=== PATIENT | female | born 1965 | race Caucasian/White ===

== ENCOUNTER 2019-12-23 06:41 | Outpatient (CLI) | payer OTHER, SELFPAY ==
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
== END 2019-12-23 06:42 | disposition home or self-care (01) ==
PROVIDERS: PCP Internal Medicine; Visit Provider Internal Medicine
DX: M54.2 Cervicalgia (principal); S19.9XXA Unspecified injury of neck, initial encounter; M47.812 Spondylosis without myelopathy or radiculopathy, cervical region; M43.12 Spondylolisthesis, cervical region
CPT/HCPCS: 72052

== ENCOUNTER 2020-10-09 07:45 | Outpatient (CLI) | payer OTHER, SELFPAY | END 2020-10-09 07:46 | disposition home or self-care (01) | LOC: ANHAUDIO 07:46 | PROVIDERS: Visit Provider Otolaryngology | DX: H93.13 Tinnitus, bilateral (principal) | CPT/HCPCS: 92557; 92567 ==

== ENCOUNTER 2021-08-18 20:47 | Emergency (ER) | payer OTHER, SELFPAY ==
--- NOTE | ~2021-08-18 | XR_ITS ---
EXAMINATION: XR ankle RT min 3V EXAM DATE: 08/18/2021 21:06 INDICATION: Fall today, right ankle pain. Initial encounter. TECHNIQUE: Right ankle frontal, lateral and oblique projections obtained and reviewed. There is no p rior study for comparison. FINDINGS: There is possible acute closed posttraumatic nondisplaced fracture of the right radial dis clemente metaphysis. If patient unable to bear weight, consider CT without contrast. No appreciable soft t issue swelling identified. No other suspicious findings. IMPRESSION: Possible fibular fracture; consider CT without contrast. Reviewed, dictated and finalized at location A.
[2021-08-18 21:09] VITALS: BP 141/74; PULSE 99; RESP 18; TEMP 37.1; O2SAT 98
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
[2021-08-18 23:27] VITALS: BP 130/78; PULSE 88; RESP 18; TEMP 36.8; O2SAT 100
== END 2021-08-18 23:28 | disposition home or self-care (01) ==
PROVIDERS: Emergency Provider Emergency Medicine
DX: S93.401A Sprain of unspecified ligament of right ankle, initial encounter (principal); E78.5 Hyperlipidemia, unspecified; Z85.3 Personal history of malignant neoplasm of breast; W10.9XXA Fall (on) (from) unspecified stairs and steps, initial encounter
CPT/HCPCS: 73610; 99283

== ENCOUNTER 2023-01-04 13:35 | Emergency (ER) | payer OTHER, SELFPAY ==
[2023-01-04 13:43] VITALS: BP 133/72; PULSE 115; RESP 12; TEMP 38.3; O2SAT 98
[2023-01-04 13:48] VITALS: BP 133/72; PULSE 115; RESP 12; TEMP 38.3; O2SAT 98
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
== END 2023-01-04 14:29 | disposition home or self-care (01) ==
PROVIDERS: Emergency Provider Nurse Practitioner Family; PCP Internal Medicine
DX: J02.0 Streptococcal pharyngitis (principal); E78.5 Hyperlipidemia, unspecified; E55.9 Vitamin D deficiency, unspecified; Z85.3 Personal history of malignant neoplasm of breast
CPT/HCPCS: 87804; 87880; 99213; G0463

== ENCOUNTER 2023-01-25 14:55 | Emergency (ER) | payer OTHER, SELFPAY ==
[2023-01-25 15:15] VITALS: BP 138/76; PULSE 88; RESP 18; TEMP 36.6; O2SAT 99
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
== END 2023-01-25 15:33 | disposition home or self-care (01) ==
PROVIDERS: Emergency Provider Nurse Practitioner Family; PCP Internal Medicine
DX: B34.9 Viral infection, unspecified (principal); E78.5 Hyperlipidemia, unspecified; Z85.3 Personal history of malignant neoplasm of breast
CPT/HCPCS: 81003; 87081; 87880; 99213; G0463

== ENCOUNTER 2024-05-29 19:29 | Emergency (ER) | payer OTHER, SELFPAY ==
[2024-05-29 19:40] VITALS: BP 146/76; PULSE 95; RESP 16; TEMP 36.9; O2SAT 99
[2024-05-29 19:44] VITALS: BP 146/76; PULSE 95; RESP 16; TEMP 36.9; O2SAT 99
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
== END 2024-05-29 20:00 | disposition home or self-care (01) ==
PROVIDERS: Emergency Provider Nurse Practitioner Family; PCP Internal Medicine
DX: J02.0 Streptococcal pharyngitis (principal); E78.5 Hyperlipidemia, unspecified; Z85.3 Personal history of malignant neoplasm of breast
CPT/HCPCS: 87880; 99213; G0463

== ENCOUNTER 2025-03-10 06:26 | Emergency (ER) | payer OTHER, SELFPAY ==
[2025-03-10] VITALS (18 sets, daily range): BP systolic 114–155; BP diastolic 63–84; PULSE 83–115; RESP 12–24; TEMP 36.4–36.8; O2SAT 95–100
--- NOTE | ~2025-03-10 | US_ITS ---
EXAMINATION: US right upper quadrant DATE: 03/10/2025 07:45 INDICATION: Right upper quadrant abdominal pain. Chest pain. TECHNIQUE: Multiple grayscale and Doppler ultrasound images of the abdomen were obtained. COMPARISON: None FINDINGS: The pancreatic head and body are normal in appearance. The pancreatic tail is not visualized. Visual ized proximal to mid abdominal aorta and inferior vena cava are normal. Liver has normal contour, wit h a smooth surface. There is increased parenchymal echogenicity and coarsened echotexture consistent with diffuse hepatic steatosis. No liver lesion identified. No intrahepatic biliary duct dilation hernandez spected. Portal venous flow was seen in the hepatopetal, normal direction and has normal Doppler wave form. There are multiple small shadowing gallstones layering in the dependent aspect of the otherwise normal-appearing gallbladder. The common bile duct measures 3 mm, which is normal. Sonographic Tom y sign was reported as negative by the rubber roller grinder.Visualized portion of the right kidney demonstrate s normal contour and echogenicity with no hydronephrosis. IMPRESSION: 1. Cholelithiasis without findings of acute cholecystitis or biliary obstruction. 2. Diffuse hepatic steatosis. Reviewed, dictated and finalized at location B. IMPRESSION: 1. Cholelithiasis without findings of acute cholecystitis or biliary obstructio n. 2. Diffuse hepatic steatosis.
--- NOTE | ~2025-03-10 | XR_ITS ---
XR chest 2V Ordering provider: Logan Mesa MD History: 59 years Female with . chest pain . Comparison: None. FINDINGS: MEDIASTINUM: The cardiac silhouette is not enlarged. Bilateral breast implants. LUNGS: No infiltrates, effusions or pneumothorax. OTHER: No free air under the diaphragm. IMPRESSION: No acute cardiopulmonary pathology. Reviewed, dictated and finalized at location A.
--- OUTSIDE RECORDS SUMMARY | 2025-03-10 06:28 | XMS_ITS ---
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 Fiberglass Name Role Phone Vickie Melton Primary Care Provider Sarita Ahn Unavailable [phone] REASON FOR VISIT Refill Medications Medication SIG (Take, Route, Frequency, Duration) Notes Start Date End Date Status Albuterol Sulfate HFA 108 (90 Base) MCG/ACT 2 puffs Inhalation every 4 hrs for 30 days Active Encounters Encounter Location Date Provider Diagnosis [facility] [address] [place] [address] 01/20/2025 Sarita Isidro Shortness of breath R06.02 Assessments Encounter Date Diagnosis (ICD Code) Assessment Notes Treatment Notes Treatment Clinical Notes Section Notes 01/20/2025 Shortness of breath (ICD-10 - R06.02) Plan Of Treatment Medication Medication Name Sig Start Date Stop Date Notes Albuterol Sulfate HFA 108 (9 0 Base) MCG/ACT 2 puffs Inhalation every 4 hrs for 30 days Next Appt Details Provider Name:Sarita Isidro , 06/26/2025 03:00:00 PM, [address] [facility] [address], [place], [address], Progress Notes * Mary PUENTESOB:1965 (59 yo F)Acc No.[id number]:01/20/2025 Patient: K UBERSKI, Talon :1965 A ge:59 Y S ex:Female Address:[facility] [address], [place], [address] * Refills Refill Albuterol Sulfate HFA Aerosol Solution, 108 (90 Base) MCG/ACT, Inhalation, 1, 2 puffs, every 4 hrs, 30 days, Refills=0 * true * Date: Generated for José Miguel gilbert/Tracy/Danikaitting on: 0 03/10/2025 06:28 AM CDT
--- OUTSIDE RECORDS SUMMARY | 2025-03-10 06:28 | XMS_ITS ---
Author Organization [facility] [employer] [place] ([address]) Address [address] [place] [address] Care Team Providers Care Wood Carver Hand Name Role Phone Vickie Melton Primary Care Provider Sarita Ahn [phone] REASON FOR VISIT Message Medications Medication SIG (Take, Route, Fr equency, Duration) Notes Start Date End Date Status Breyna 160-4.5 MCG/ACT 2 puffs Inhalatio n twice a day for 90 days 12/26/2024 Active Encounters Encounter Location Date Provider Diagnosis [facility] [address] [place] [address] 12/25/2024 Sarita Isidro Plan Of Treatment Medication Medication Name Sig Start Date Stop Date Notes Breyna 160-4.5 MCG/ACT 2 puffs Inhalatio n twice a day for 90 days 12/26/2024 Next Appt Details Provider Name:Sarita Isidro , 06/26/2025 03:00:00 PM, [address], [place], [address], Progress Notes * Torres PUENTES:1965 (59 yo F)Acc No.[id number]:12/25/2024 Patient: Talon BARRON :1965 A ge:59 Y S ex:Female Address:[address] [place], [address] * Refills Start Breyna Aerosol, 160-4.5 MCG/ACT, Inhalation, 3, 2 puffs, twice a day, 90 days, Refills=1 * true * Date: Generated for José Miguel gilbert/Tracy/Danikaitting on: 0 03/10/2025 06:28 AM CDT
--- OUTSIDE RECORDS SUMMARY | 2025-03-10 06:28 | XMS_ITS ---
Author Organization [employer] [place] ([address]) Address [address] [place] [address] Care Team Providers Care Knuckler Name Role Phone Vickie Melton Primary Care Provider Sarita Ahn [phone] REASON FOR VISIT Message Medications Medication SIG (Take, Route, Frequency, Duration) Notes Start Date End Date Status Fluticasone Furoate-Vilanterol 100-25 MCG/ACT 1 puff Inhalation Once a day for 90 days 12/16/2024 Active Encounters Encounter Location Date Provider Diagnosis [facility] [address] [place] [address] 12/16/2024 Sarita Isidro Shortness of breath R06.02 Assessments Encounter Date Diagnosis (ICD Code) Assessment Notes Treatment Notes Treatment Clinical Notes Section Notes 12/16/2024 Shortness of breath (ICD-10 - R06.02) Plan Of Treatment Medication Medication Name Sig Start Date Stop Date Notes Fluticasone Furoate-Vilanter ol 100-25 MCG/ACT 1 puff Inhalation Once a day for 90 days 12/16/2024 Dulera 100-5 MCG/ACT 2 puffs Inhalation Twice a day Next Appt Details Provider Name:Sarita Isidro , 06/26/2025 03:00:00 PM, [address], [address], [place], [address], Progress Notes * Torres PUENTES:1965 (59 yo F)Acc No.[id number]:12/16/2024 Patient: aTlon BARRON :1965 A ge:59 Y S ex:Female Address:[facility] [address] [place], [address] * Refills Stop Dulera Aerosol, 100-5 MCG/ACT, Inhalation, 2 puffs, Twice a day Start Fluticasone Furoate-Vilanterol Aerosol Powder Breath Activated, 100-25 MCG/ACT, Inhalation, 3, 1 puff, Once a day, 90 days, Refills=0 * true * Date: Generated for José Miguel gilbert/Tracy/Danikaitting on: 0 03/10/2025 06:28 AM CDT
--- OUTSIDE RECORDS SUMMARY | 2025-03-10 06:28 | XMS_ITS | Patient Health Record ---
Author Organization [facility] ([address]) Address [address] [address] Care Team Providers Care Business Development Engineer Name Role Phone Vickie Melton Primary Care Provider UnavailSarita Weiner Unavailable [phone] [facility], Provider Unavailable Unavailab le Allergies Allergen (clinical drug ingredient) Drug/Non Drug Allergy documented on EMR Reaction Allergy Type Onset Date Status penicillamine penicillAMINE Unknown Drug Allergy Active Results Component Value Reference Range Notes Spirometry Reviewed date:04/21/2024 05:00:54 PM Interpretation:Normal Performing Lab: Notes/Report: Normal SpiroPreBronchodilator_FVC 2.99 SpiroPostBronchodilator_FEF25_75 0 SpiroPreBronchodilator_FEF25_75 2.06 SpiroPreBronchodilator_FEV1 2.31 SpiroPrecentPredictionPost_F EF25 _75 0 SpiroPrecentPredictionPost_FEV1 0 SpiroPrecentPredictionPost_F EV1_ OVER_FVC 0 SpiroPrecentPredictionPost_FVC 0 SpiroPrecentPredictionPre_FE F25_ 75 84.8 SpiroPrecentPredictionPre_FEV1 94.3 SpiroPrecentPredictionPre_FE V1_O VER_FVC 98.5 SpiroPrecentPredictionPre_FVC 96.5 SpiroPredicted_FEF25_75 2.43 SpiroPreBronchodilator_FEV1_ OVER _FVC 77.44 SpiroPreBronchodilator_PEF 5.62 SpiroPostBronchodilator_FVC 0 SpiroPostBronchodilator_FEV1 0 SpiroPostBronchodilator_FEV1 _OVE R_FVC 0 SpiroPostBronchodilator_PEF 0 SpiroPredicted_FVC 3.1 SpiroPredicted_FEV1 2.45 SpiroPredicted_FEV1_OVER_FVC 78.62 SpiroPredicted_PEF 5.73 -CBC With Differential/Plate let Reviewed date:05/13/2024 09:40:56 PM Interpretation:Normal Performing Lab:[facility], [address] [place] [id number], Phone - [phone], Director - Mikey Notes/Report: WBC 5.7 3.4-10.8 x10E3/uL RBC 4.83 3.77-5.28 x10E6/uL Hemoglobin 14.3 11.1-15.9 g/dL Hematocrit 42.8 34.0-46.6 % MCV 89 79-97 fL MCH 29.6 26.6-33.0 pg MCHC 33.4 31.5-35.7 g/dL RDW 12.2 11.7-15.4 % Platelets 363 150-450 x10E3/uL Neutrophils 53 Not Estab. % Lymphs 34 Not Estab. % Monocytes 9 Not Estab. % Eos 3 Not Estab. % Basos 1 Not Estab. % Neutrophils (Absolute) 3.0 1.4-7.0 x10E3/uL Lymphs (Absolute) 2.0 0.7-3.1 x10E3/uL Monocytes(Absolute) 0.5 0.1-0.9 x10E3/uL Eos (Absolute) 0.2 0.0-0.4 x10E3/uL Baso (Absolute) 0.0 0.0-0.2 x10E3/uL Immature Granulocytes 0 Not Estab. % Immature Grans (Abs) 0.0 0.0-0.1 x10E3/uL -Respiratory Allergens w/Tot al IgE Area 8 Reviewed date:05/17/2024 09:20:58 PM Interpretation:Abnormal [facility]forming [facility], [address] [place] [id number], Phone - [phone], Director - Kaycee Notes/Report: Class Description Levels of Specific IgE Class Description of Class ----- < 0.10 0 Negative 0.10 - 0.31 0/I Equivocal/Low 0.32 - 0.55 I Low 0.56 - 1.40 II Moderate 1.41 - 3.90 III High 3.91 - 19.00 IV Very High 19.01 - 100.00 V Very High >100.00 Very High Immunoglobulin E, Total 324 6-495 IU/mL A157-ZoU D pteronyssinus 7.99 Class IV kU/L D704-JgY D farinae 8.96 Class IV kU/L H880-DiK Cat Dander 0.72 Class II kU/L C904-HzC Dog Dander 6.74 Class IV kU/L I605-UiM [place] Grass 1.11 Class II kU/L T812-YqL Miguel Grass 0.69 Class II kU/L S277-EwE Cockroach, Greek <0.10 Class 0 kU/L R124-MoY Penicillium chrysogen <0.10 Class 0 kU /L A070-BcM Cladosporium herbarum <0.10 Class 0 kU /L M947-IyN Aspergillus fumigatus <0.10 Class 0 kU /L G609-XrT Alternaria alternata <0.10 Class 0 kU/ L J536-LdY Maple/[place] <0.10 Class 0 kU/L D800-XkI Garden, Mountain <0.10 Class 0 kU/L I141-EzX [place], White <0.10 Class 0 kU/L O510-BrS Elm, [place]mani <0.10 Class 0 kU/L T652-WmO Maple [place] <0.10 Class 0 kU/L U507-QsW [place] <0.10 Class 0 kU/L T512-ImC [place], White <0.10 Class 0 kU/L T131-KcQ [place] <0.10 Class 0 kU/L Z183-YfU Pecan, [place] <0.10 Class 0 kU/L I574-KyR White [place] <0.10 Class 0 kU/L G333-UqZ Ragweed, Short 0.49 Class I kU/L B874-HeX Thistle, Indonesian <0.10 Class 0 kU/L E057-YjJ Pigweed, Common 0.20 Class 0/I kU/L R221-RiP Rough [place] <0.10 Class 0 kU/L Y617-BoP Mouse Urine <0.10 Class 0 kU/L Reason For Referral No Information Medications Medication SIG (Take, Route, Frequency, Duration) Notes Start Date End Date Status Cholecalciferol *Please review and pick correct strength-formulat ion from [employer] options. If intended option is not shown, discontinue and re-order from Quick Search* Active Breyna 160-4.5 MCG/ACT 2 puffs Inhalation twice a day for 90 days 12/26/2024 Active ZyrTEC 10 MG 1 tablet Orally Once a day for 30 day(s) Active Nasacort Allergy 24HR 55 MCG/ACT 1 spray in each nostril Nasally Once a day for 30 day(s) Active traZODone HCl 50 MG as directed orally Active AEROCHAMBER MDI SPACER - MOUTHPIECE (ADULT) N/A As directed PO Per asthma action plan for 30 days Active Fluticasone Furoate-Vilanterol 100-25 MCG/ACT 1 puff Inhalation Once a day for 90 days 12/16/2024 Active Albuterol Sulfate HFA 108 (90 Base) MCG/ACT 2 puffs Inhalation every 4 hrs for 30 days Active Albuterol Sulfate HFA 108 (90 Base) MCG/ACT 2 puff(s) inhaled every 6 hours Not-Taking Fluticasone-Salmetero l 115-21 MCG/ACT 2 puffs Inhalation Twice a day for 90 days 09/10/2024 Not-Taking Immunizations Vaccine Route Administration Date Status Comme nts NOC Influenza-Afluria PFS IM Intramuscular 11/14/2024 Admi nistered Social History Tobacco Use: Social History Observation Description Date Details (start date - stop date) Never Smoker NA - NA Tobacco Control (Standard) Question Answer Notes Tobacco use: Nonsmoker Problems Problem Type SNOMED Code ICD Code Onset Dates Problem Status W/U Status Risk Notes Problem Wheezing (16162511) Wheezing (R06.2) Active confirmed Problem Chronic allergic conjunctivitis (79646330) Other chronic allergic conjunctivitis (H10.45) Active confirmed Problem Allergic rhinitis caused by pollen (disorder) (00984271) Allergic rhinitis due to pollen (J30.1) Active confirmed Problem Allergic rhinitis (96371888) Other allergic rhinitis (J30.89) Active confirmed Problem Chronic rhinitis (06558121) Chronic rhinitis (J31.0) Active confirmed Problem Hypertrophy of nasal turbinates (48984727) Hypertrophy of nasal turbinates (J34.3) Active confirmed Problem Uncomplicated mild persistent asthma (570956289) Mild persistent asthma, uncomplicated (J45.30) Active confirmed Problem Uncomplicated moderate persistent asthma (676024086) Moderate persistent asthma, uncomplicated (J45.40) Active confirmed Problem Uncomplicated severe persistent asthma (898961217) Severe persistent asthma, uncomplicated (J45.50) Active confirmed Problem Allergic rhinitis caused by animal hair and dander (737329701630927) Allergic rhinitis due to animal (cat) (dog) hair and dander (J30.81) Active confirmed Problem Shortness of breath (264017838) Shortness of breath (R06.02) Active confirmed Vital Signs Oximetry 98 % 11/14/2024 Blood pressure diastolic 82 mm Hg 11/14/2024 Height 64 in 11/14/2024 Blood pressure systolic 127 mm Hg 11/14/2024 Weight 186.8 lbs 11/14/2024 BMI 32.06 kg/m2 11/14/2024 Encounters Encounter Location Date Provider Diagnosis [address] [address] 04/27/2024 Provider [facility] Shortness of breath R06.[address] [place] [address] [address] 04/18/2024 Sarita Young Wheezing R06.2 ; Shortness of breath R06.02 ; Hypertrophy of nasal turbinates J34.3 ; Chronic rhinitis J31.0 and Adverse effect of penicillins, initial encounter T36.0X5A [address] [place] [employer] [address] [address] 07/18/2024 Sarita Young Wheezing R06.2 ; Shortness of breath R06.02 ; Allergic rhinitis due to pollen J30.1 ; Allergic rhinitis due to animal (cat) (dog) hair and dander J30.81 ; Other allergic rhinitis J30.89 and Adverse effect of penicillins, subsequent encounter T36.0X5D [place] [address] [address] 11/14/2024 Sarita Young Wheezing R06.2 ; Shortness of breath R06.02 ; Allergic rhinitis due to pollen J30.1 ; Allergic rhinitis due to animal (cat) (dog) hair and dander J30.81 ; Other allergic rhinitis J30.89 ; Adverse effect of penicillins, subsequent encounter T36.0X5D and Encounter for immunization Z23 [address] [address] 03/11/2024 Sarita Young Shortness of breath R06.[address] [address] 03/13/2024 Sarita Young [address] [address] 09/18/2024 Sarita Young Shortness of breath R06.[address] [address] 10/01/2024 Sarita Young [address] [address] 12/10/2024 Sarita Young [address] [address] 12/10/2024 Sarita Young [address] [address] 12/16/2024 Sarita Young Shortness of breath R06.[address] [address] 12/25/2024 Sarita Young [address] [address] 01/20/2025 Sarita Young Shortness of breath R06.[address] [address] 09/09/2024 Sarita Young Shortness of breath R06.[address] [address] 09/10/2024 Sarita Young Assessments Encounter Date Diagnosis (ICD Code) Assessment Notes Treatment Notes Treatment Clinical Notes Section Notes 03/11/2024 Shortness of breath (ICD-10 - R06.02) 04/18/2024 Wheezing (ICD-10 - R06.2) See plan above 07/18/2024 Shortness of breath (ICD-10 - R06.02) Talon has experienced lower airway symptoms with exposure to animals and possibly mold concerning for asthma, which responds well to albuterol. -Spirometry last visit with normal function but FVL shows scalloping concerning for airway obstruction. Started on Breo then changed to Advair due to insurance. 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 Doing better on Advair - will refill PATRIA. Highly recommend immunotherapy - AAP was reviewed and training with MDI and spacer was performed last visit. Rinse out mouth after use of Adviar 09/09/2024 Shortness of breath (ICD-10 - R06.02) 09/18/2024 Shortness of breath (ICD-10 - R06.02) 11/14/2024 Wheezing (ICD-10 - R06.2) See plan above 04/18/2024 Shortness of breath (ICD-10 - R06.02) Talon was seen last month for evaluation. She has experienced lower airway symptoms with exposure to animals and possibly mold concerning for asthma, which responds well to albuterol. -Spirometry last visit with normal function but FVL shows scalloping concerning for airway obstruction. Started on Breo then changed to Advair due to insurance. 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 - AAP was formulated and training with MDI and spacer was performed last visit. Rinse out mouth after use of Adviar -Will check ImmunoCaps as she is on Trazadone. She is willing to hold in the future for testing 04/27/2024 Shortness of breath (ICD-10 - R06.02) 07/18/2024 Wheezing (ICD-10 - R06.2) See plan above 11/14/2024 Shortness of breath (ICD-10 - R06.02) Talon has experienced lower airway symptoms with exposure to animals and possibly mold concerning for asthma, which responds well to albuterol. -Spirometry last visit with normal function but FVL shows scalloping concerning for airway obstruction. Started on Breo then changed to Advair due to insurance. 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 Doing better on Dulera- will refill PATRIA. Highly recommend immunotherapy - AAP was reviewed and training with MDI and spacer was performed last visit. Rinse out mouth after use of Adviar -Flu shot administered today 12/16/2024 Shortness of breath (ICD-10 - R06.02) 01/20/2025 Shortness of breath (ICD-10 - R06.02) 04/18/2024 Hypertrophy of nasal turbinates (ICD-10 - J34.3) Talon's history is concerning for allergic disease. As she is on Trazadone, ImmunoCaps ordered and plan for selective testing in the future -highly consider immunotherapy 07/18/2024 Allergic rhinitis due to pollen (ICD-10 - J30.1) ImmunoCaps reviewed today showing grass, cat, dog, ragweed, dust mite, and pigweed allergies. Accordingly, we have introduced a new, aggressive medication regimen, discussed nasal washes and allergy-specific avoidance measures. We also discussed adjunctive therapies including subcutaneous, specific allergen immunotherapy as relates to the treatment and prevention of atopic disease. He/She is currently considering the risks, benefits and alternatives to this care. Risks: bleeding, infection, allergic reaction, anaphylaxis; Benefits: reduced need for medications, improved symptoms, disease modification. Alternatives: watch/wait, change medication regimen, improve allergy avoidance measures. -Recommend returning off Trazadone later this year for selective allergy testing -Recommend dosing Zyrtec before exposure to dog, carry PATRIA 11/14/2024 Allergic rhinitis due to pollen (ICD-10 - J30.1) ImmunoCaps reviewed today showing grass, cat, dog, ragweed, dust mite, and pigweed allergies. Accordingly, we have introduced a new, aggressive medication regimen, discussed nasal washes and allergy-specific avoidance measures. We also discussed adjunctive therapies including subcutaneous, specific allergen immunotherapy as relates to the treatment and prevention of atopic disease. He/She is currently considering the risks, benefits and alternatives to this care. Risks: bleeding, infection, allergic reaction, anaphylaxis; Benefits: reduced need for medications, improved symptoms, disease modification. Alternatives: watch/wait, change medication regimen, improve allergy avoidance measures. -Recommend returning off Trazadone later this year for selective allergy testing -Recommend dosing Zyrtec before exposure to dog, carry PATRIA 04/18/2024 Chronic rhinitis (ICD-10 - J31.0) See above plan -discussed options like Zyrtec vs. Sara prior to dog exposure. Also taking Nasacort -avoidance measures also reviewed 11/14/2024 Allergic rhinitis due to animal (cat) (dog) hair and dander (ICD-10 - J30.81) Follow allergen avoidance, meds and consider SCIT as an adjunctive treatment to current regimen 07/18/2024 Allergic rhinitis due to animal (cat) (dog) hair and dander (ICD-10 - J30.81) Follow allergen avoidance, meds and consider SCIT as an adjunctive treatment to current regimen 07/18/2024 Other allergic rhinitis (ICD-10 - J30.89) Follow allergen avoidance, meds and consider SCIT as an adjunctive treatment to current regimen 04/18/2024 Adverse effect of penicillins, initial encounter (ICD-10 - T36.0X5A) Historical rash/hives in childhood with PCN. Minimal details recalled -recommend returning for testing -understands to hold Trazadone x 2 weeks - will try to get aeroallergen testing and SPT done the same week 11/14/2024 Other allergic rhinitis (ICD-10 - J30.89) Follow allergen avoidance, meds and consider SCIT as an adjunctive treatment to current regimen 11/14/2024 Adverse effect of penicillins, subsequent encounter (ICD-10 - T36.0X5D) Historical rash/hives in childhood with PCN. Minimal details recalled -recommend returning for testing -understands to hold Trazadone x 2 weeks - will try to get aeroallergen testing and SPT done the same week 07/18/2024 Adverse effect of penicillins, subsequent encounter (ICD-10 - T36.0X5D) Historical rash/hives in childhood with PCN. Minimal details recalled -recommend returning for testing -understands to hold Trazadone x 2 weeks - will try to get aeroallergen testing and SPT done the same week 11/14/2024 Encounter for immunization (ICD-10 - Z23) flu shot administered 04/18/2024 Other 07/18/2024 Other 11/14/2024 Other Plan Of Treatment Next Appt Details Provider Name:Sarita Isidro 06/26/2025 03:00:00 PM, [address] [facility], [address], [place], [address], Insurance Providers Payer Name Payer Address Payer Phone Subscriber Number Group Number Insured Name Patient Relationship to Insured Coverage Start Date Coverage End Date Vicki [address] [place] [address] [id number] Talon Puentes Self - patient is the insured 8 Medical (General) History Medical History History ICD Code breast cancer Surgical History Surgery Date(Month/Year) appendectomy mastectomy
--- OUTSIDE RECORDS SUMMARY | 2025-03-10 06:28 | XMS_ITS | Encounter Summary ---
Author Organization [facility] Address [address] [place] [address] Care Team Providers Care Skid Worker Name Role Phone Vickie Melton MD Primary Care Provider + Reason for Visit * Reason Comments Question Patient Communication Information Encounter Details Date Type Department Care Team (Late st Contact Info) Description 08/19/2024 Telephone [facility] Internal Medicine - [place] [id number] [place] [address] Vickie Melton MD [address] [place] [address] Question; Patient Communication; Information Social History Tobacco Use Types Packs/Day Years Used Date Smoking Tobacco: Never Smokeless Tobacco: Never Alcohol Use Standard Drinks/Week Comments No 0 (1 standard drink = 0.6 oz pur e alcohol) Comments No Sex and Gender Information Value Date Recorded Sex Assigned at Not on file Legal Sex Female 5:54 AM TABLE SETTER Gender Identity Not on file Sexual Orientation Not on file Occupation Industry Job Start Date Job End Date Not on file Not on file Not on file Not on file documented as of this encounter Miscellaneous Notes * Telephone Encounter - Farnaz Lutz RN - 08/19/2024 12:05 PM CDT Adult patient complaining of Respiratory Symptoms: Onset of new/worsening symptom(s)? Monday aching and MEZA, Sat woke with L side throat hurting with swallowing. Tested covid and flu both neg. Cheeks, teeth, and forehead hurts. Using saline spray, otherwise no nasl drainage. No cough. + Fevers. Advised walk in clinic or if unable to make it to walk in clinic this afternoon. The patient has the following symptoms or concerns: Systemic: [x] Fever of 100.4 or greater [] Chills [x] Body aches [x] Headache Respiratory: [] Chest congestion [] Cough Productive: [] Yes [] No Color: [] clear/white [] yellow [] green [] brown [] bloody [] Shortness of breath or difficulty breathing [] Wheezing [] History of asthma or COPD Nasal/sinus: [x] Sinus pain or congestion [] Nasal drainage Color: [] clear/white [] yellow [] green [] brown [] bloody [] Loss of smell or taste [] Sneezing [] History of seasonal allergies Throat: [x] Sore throat If yes, [] White patches in throat [] Swollen glands GI: [] Nausea [] Vomiting [] Diarrhea Exposure: [] Exposure to influenza in last 14 days [] Exposure to Covid-19 in last 14 days Covid-19 test in last 14 days? [] Positive Date: 08/18/24 [x] Negative Date: [] No test in last 14 days [x] Has tried medication or treatment at home Medications/Treatments tried: Excedrine migraine or advil, dayquil, Other pertinent information: Reports did a covid and Flu A/B swab fri and yesterday at work and it was NEG. INFORMATIONAL MESSAGE ONLY. Not able to schedule appointment within the recommended timeframe. Patient informed of additional [employer] Resources and expresses intent to utilize walk-in and [facility]. Phone Management by Nurse: For cough: recommend plain guaifenesin products (eg Delsym, Mucinex), follow package instructions If tried and failed, document and route to provider for consideration of prescription therapy Recommend home covid test if not done already If unable to do a home test, follow clinic specific testing recommendations for COVID and/or influenza testing If patient has known exposure to influenza to from another member of their household and are interested in an order for prophylaxis, document their personal risk factors, details of the exposure and route to provider for consideration of prescription therapy Encourage fluids unless on fluid restriction. Use Acetaminophen or Ibuprofen for fever or body aches - see appendix for contraindications and precautions Use humidifier if available if complaining of head or chest congestion Use saline nasal spray or Flonase for nasal congestion. When and Why to Call Us Back: If new or worsening symptoms develop or if no improvement after 7 days. * Telephone Encounter - Mary Fields - 08/19/2024 10:04 AM CDT Copied from [facility] #[id number]. Topic: Patient or Caregiver Communication Request >> Aug 19, 2024 10:03 AM Mary Turner wrote: Patient or Caregiver requesting advice Caller: Talon Puentes Patient/Caregiver Callback Number: [phone] (home) Call Notes: Talon Puentes asking if Dr Melton has seen her MMM and asking to be updated on Strep test * Telephone Encounter - Stephanie Pedro - 08/19/2024 8:48 AM CDT Copied from [facility] #[id number]. Topic: Patient or Caregiver Communication Request >> Aug 19, 2024 8:45 AM Stephanie Henson wrote: Patient or Caregiver insisting that a message be sent to Care Team Caller: Talon Patient/Caregiver Callback Number: [phone] Call Notes: pt tried to use [employer] and she has been unable to access the [employer] and is needing a call back about getting a in regarding a strep test * Telephone Encounter - Reymauricio Ramirezzachary - 08/19/2024 8:21 AM CDT Copied from [facility] #[id number]. Topic: Patient or Caregiver Communication Request >> Aug 19, 2024 8:20 AM Erica Henson wrote: Patient or Caregiver insisting that a message be sent to Care Team Caller: Talon Puentes Patient/Caregiver Callback Number: [phone] (home) Call Notes: do we do rapid strep test in the office? documented in this encounter Plan of Treatment Upcoming Encounters Date Type Department Care Team (Late st Contact Info) Description 09/03/2025 11:20 AM CDT Office Visit [facility] Internal Medicine - [address] [address] Vickie Melton MD [address] [place] [address] documented as of this encounter Visit Diagnoses Not on filedocumented in this encounter Care Teams Skid Worker Relationship Specialty Start Date End Date Vickie Melton MD [address] [place] [address] PCP - General Internal Medicine 12/18/20 documented as of this encounter
--- OUTSIDE RECORDS SUMMARY | 2025-03-10 06:28 | XMS_ITS | Clinical Summary ---
Author Organization [facility] [place] Address [address] [place] [address] Phone Care Team Providers Care Metallurgical Analyst Name Role Phone Vickie Melton MD Primary Care Provider + Allergies Active Allergy Reactions Criticality Noted Date Comments Penicillins Hives High 06/04/2010 Medications MULTIVITAMINS (DAILY MULTIVITAMIN ORAL) Take by mouth daily. Active 0mega-3 fatty acids-vitamin E (FISH OIL) 1,000 mg Capsule Take 1,000 mg by mouth 2 times daily. Active conjugated estrogens (PREMARIN) 0.625 mg/gram vaginal creamIndications: use daily x 1 week then three x per week Insert 0.5 Grams vaginally daily at bedtime. 30 Gram 1 1 Active TURMERIC ORAL Take by mouth. A ctive albuterol sulfate HFA 90 mcg/actuation aerosol inhalerIndication s:COVID-19 virus infection,Cough, unspecified type TAKE 2 PUFFS BY INHALATION EVERY 6 HOURS NEEDED FOR SHORTNESS OF BREATH 8.5 Gram 3 Active triamcinolone acetonide (Nasacort) 55 mcg nasal spray Administer 1 Logan in each nostril daily. 4 Active Advair Diskus 250-50 mcg/dose disk inhaler Take 1 Puff by inhalation 2 times daily. 4 Active ergocalciferol, vitamin D2, (VITAMIN D ORAL) Take 1 Capsule by mouth daily. Active CALCIUM CARBONATE ORAL Take 1 Tablet by mouth daily. Active traZODone (DESYREL) 50 mg tabletIndications :Insomnia, unspecified type TAKE 1 TABLET(50 MG) BY MOUTH DAILY AT BEDTIME 30 Tablet 1 5 Active Active Problems Patient Care Coordination No te Formatting of this note migh t be different from the original. 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 Was diagnosed with severe allergy to dogs, cats and dust mites. [facility] . Was started on Advair Diskus and Albuterol HFA Inhaler to be used prn. Insomnia 06/14/2022 Obesity (BMI 30.0-34.9) 06/14/2022 Arthralgia 06/14/2022 H/O breast reconstruction 11/10/2017 Absence of both breasts 11/10/2017 History of radiation therapy 09/07/2017 History of breast cancer 06/22/2017 Macromastia 06/22/2017 Breast mass 06/04/2010 Overview (06/04/2010): Pt felt mass May 2010 right Resolved Problems Problem Noted Date Diagnosed Date Resolved Date Lump or mass in breast 06/23/201009/04 Breast Cancer Right invasive ductal,T1bN0 06/09/2010 06/14/2022 Overview (06/23/2010): Right invasive ductal,T1bN0 Core biopsy, 06-07-2010. Grade 3. Extensive tumor necrosis ER weakly +1%, [place] weakly +2%, HER-2/luz negative, proliferative rate 78% Encounters Date Type Department Care Team Description 02/11/2025 External Device Data STL ABSTRACTION Provider, Abstract 01/29/2025 External Device Data STL ABSTRACTION Provider, Abstract 01/22/2025 External Device Data STL ABSTRACTION Provider, Abstract 01/21/2025 External Device Data STL ABSTRACTION Provider, Abstract 01/20/2025 External Device Data STL ABSTRACTION Provider, Abstract 01/18/2025 External Device Data STL ABSTRACTION Provider, Abstract 01/18/2025 External Device Data STL ABSTRACTION Provider, Abstract 01/15/2025 External Device Data STL ABSTRACTION Provider, Abstract 01/01/2025 External Device Data STL ABSTRACTION Provider, Abstract 12/10/2024 [facility] Internal Medicine [address] [address] Hannah Suzette Natividad, ANALYST BUSINESS ANALYSIS Insomnia, unspecified type from Last 3 Months Immunizations Immunization Administration Dates Next Due (SHINGRIX)(50 YRS UP) ZOSTER VACCINE RECOMBINANT, 0.5 ML, IM 06/22/2020 INFLUENZA VACCINE QUADRIVALENT 3 YR UP PF IM Family History Medical History Relation Name Comments Cancer Father epiglotis Colon Cancer Maternal Uncle Other Mother type II diabete s Colon Cancer Paternal Grandfather Breast Cancer Neg Hx Ovarian Cancer Neg Hx Relation Name Status Comments Father Maternal Uncle Mother Paternal Grandfather Social History Tobacco Use Types Packs/Day Years Used Date Smoking Tobacco: Never Smokeless Tobacco: Never Tobacco Cessation:Counseling Given: Not Answered Alcohol Use Standard Drinks/Week Comments No 0 (1 standard drink = 0.6 oz pur e alcohol) Comments No Sex and Gender Information Value Date Recorded Sex Assigned at Not on file 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 Gender Identity Not on file Sexual Orientation Not on file Occupation Industry Job Start Date Job End Date Not on file Not on file Not on file Not on file Last Filed Vital Signs Vital Sign Reading Time Taken Comments Blood Pressure 128/66 08/07/2024 11:12 AM CDT Pulse 96 08/07/2024 11:12 AM CDT Temperature 37.2 C (98.9 F) 08/07/2024 11:12 AM CDT Respiratory Rate 18 08/07/2024 11:12 AM CDT Oxygen Saturation 97% 08/07/2024 11:12 AM CDT Inhaled Oxygen Concentration - - Weight 84.4 kg (186 lb) 08/07/2024 11:12 AM CDT Height 162.6 cm (5' 4 ) 08/07/2024 11:12 AM CDT Body Mass Index 31.93 08/07/2024 11:12 AM CDT Plan of Treatment Upcoming Encounters Date Type Department Care Team (Late st Contact Info) Description 09/03/2025 11:20 AM CDT Office Visit [facility] Internal Medicine - [address] [address] Vickie Melton MD [address] [place] [address] Health Maintenance Due Date Last Done Comments DTAP/TDAP/TD VACCINES (1 - Tdap) 1982 FIT-DNA Q 3 years 2008 FIT/FOBT Q 1 year 2008 Flex Sig/CT Colonography Q 5 years 2008 HPV/Cotest (21-29) 11/10/2019 11/10/2014, 06/24/2014 HPV/Cotest (30-65) 11/10/2019 11/10/2014, 06/24/2014 ZOSTER VACCINE (2 of 2) 08/17/2020 06/22/2020, 06/22 CERVICAL CANCER SCREENING 06/16/2023 PAP SMEAR 06/16/2023 06/16/2020, 10/14, 06/24/2014 Preventative Visit- Commercial 11/13/2024 0 08/07/2024, 06/27/2023, 06/14/2022 COLORECTAL SCREENING 06/08/2026 06/08/2021, 06/08/2021, 06/22/2018 Colorectal Cancer Screening 06/08/2026 Pre-Diabetes and Diabetes Screening 08/07/202708/07, 01/04/2021 RSV VACCINE (60+ or ) (1 - 1-dose 75+ series) 2038 INFLUENZA VACCINE Completed 08/07/2024, 12/02/2019 Medical Devices Implanted Type Area Hearing Care Practitioner Device Identifier Shelf Expiration Date Model / Serial / Lot Alloderm Rtu Cntr 1.6sq Mm [id number] - [id number] Implanted:Qt y: 1 on 10/31/2017 by Juancarlos Harrison MD at [facility] Biological Right: Breast LIFECELL MICHAEL [id number] 09/12/2019 [id number] / / [id number] Description:REQ#[id number] Alloderm Rtu Cntr 1.6sqmm [id number] - [id number] Implanted:Qt y: 1 on 10/31/2017 by Juancarlos Harrison MD at [facility] Biological Bilateral : Breast LIFECELL MICHAEL [id number] 04/12/2019 [id number] / / [id number] Description:SPLIT IN 2, SMAL L PIECE USED ON LEFT SIDE REQ#[id number] Alloderm Rtu Cntr 1.6sq Mm [id number] - [id number] Implanted:Qt y: 1 on 10/31/2017 by Juancarlos Harrison MD at [facility] Biological Left: Breast LIFECELL MICHAEL [id number] 08/12/2019 [id number] / / [id number] Description:REQ#[id number] Scx 200cc Natrelle Inspira Implanted:Qt y: 1 on 10/31/2017 by Juancarlos Harrison MD at [facility] Mammary Right: Breast [id number] 08/22/2022 SCX-200 / [id number] / ALLERGAN Mammary Inspira Cohesive 285ml Scx-285 - [id number] Implanted:Qt y: 1 on 04/04/2018 by Juancarlos Harrison MD at [facility] Left: Breast ALLERGAN- MEDICAL 03/26/2022 SCX-285 / [id number] / [id number] - Vascular Access Ports - 1 - Port Pwrprt Mri 8fr [id number] Implanted:Qt y: 1 on 06/24/2010 at [facility] Port Left: Chest Wall CR BARD- ACCESS SYS 04/13/2012 [id number] / [id number] / [id number] Explanted Type Area Hearing Care Practitioner Device Identifier Shelf Expiration Date Model / Serial / Lot Natrelle Inspira Cohesive 225cc Implanted:Qty: 1 on 10/31/2017 by Juancarlos Harrison MD at [facility] Explanted:Qty: 1 on 04/04/2018 by Juancarlos Harrison MD at [facility] Left: Breast ALLERGAN- MEDICAL [id number] 06/20/2022 SCX-225 / [id number] / Description:Both Allergan br east implants are processed on requisition [id number]. Procedures Procedure Name Priority Date/Time Associated Diagnosis Comments HEMOGLOBIN A1C Routine 08/07/2024 11:48 AM CDT Encounter for general adult medical examination with abnormal findings COLONOSCOPY REPORT 06/08/2021 1: 42 PM CDT CERV/VAG CYTOPATH, THIN PREP AND HPV Routine 11/10/2014 from Last 3 Months or Most Recently Relevant to Health Maintenance Results * (ABNORMAL) HEMOGLOBIN A1C (08/07/2024 11:48 AM CDT) HEMOGLOBIN A1C 6.0(H) <5.7 % of total Hgb [facility] Comment: For someone without known diabetes, a hemoglobin A1c value between 5.7% and 6.4% is consistent with prediabetes and should be confirmed with a follow-up test. For someone with known diabetes, a value <7% indicates that their diabetes is well controlled. A1c targets should be individualized based on duration of diabetes, age, comorbid conditions, and other considerations. This assay result is consistent with an increased risk of diabetes. Currently, no consensus exists regarding use of hemoglobin A1c for diagnosis of diabetes for children. ESTIMATED AVERAGE GLUCOSE (MG/DL) 126 mg/dL [facility] ESTIMATED AVERAGE GLUCOSE (MMOL/L) 7.0 mmol/L [facility] Comment: This test was performed on the Agustin david c503 platform. Effective 01/29/24, a change in test platforms from the Escalera Cutter Apprentice Hand to the Agustin david c503 may have shifted HbA1c results compared to historical results. Based on laboratory validation testing conducted at [employer], the Agustin platform relative to the Escalera platform had an average increase in HbA1c value of < or = 0.3%. This difference is within accepted variability established by the National Glycohemoglobin Standardization Program. Note that not all individuals will have had a shift in their results and direct comparisons between historical and current results for testing conducted on different platforms is not recommended. Test Performed at: [facility] [id number] [address] Evangelina Burks MD Blood 08/07/2024 11:4 8 AM CDT 08/08/2024 5:47 AM CDT Micaela Higuera MD CHEMISTRY ORDERABLES Final Res ult [facility] [phone] [address] [place] [address] [place] [address] * COLONOSCOPY REPORT (06/08/2021 1:42 PM CDT) Narrative Procedure Note Jonathan Gupta MD - 06/08/2021 7:57 AM CDT [facility] Endoscopy Patient Name: Talon Puentes Procedure Date: 06/08/2021 Date of : 1965 Age: 56 Attending MD: Jonathan Gupta MD Procedure: Colonoscopy Indications: Surveillance: Personal history of colonic polyps (unknown histology) on last colonoscopy 3 years ago; Family Hx colon cancer multiple 2nd degree relatives Providers: Jonathan Gupta MD Referring MD: Vickie Melton MD Medicines: Propofol per Anesthesia Procedure: Informed consent was obtained for the procedure, including moderate sedation after risks were discussed. Based on the pre-procedure assessment, including review of the patient's medical history, medications, allergies, and review of systems, the patient was deemed to be an appropriate candidate for sedation. A timeout was performed. Continuous ECG monitoring, pulse oximetry, blood pressure monitoring, and direct observation were performed. The Colonoscope was introduced through the anus and advanced to the cecum, identified by appendiceal orifice and ileocecal valve. The colonoscopy was performed without difficulty. The patient tolerated the procedure well. The quality of the bowel preparation was excellent. Estimated Blood Loss: Estimated blood loss: none. Findings: A few small-mouthed diverticula were found in the sigmoid colon and descending colon. The exam was otherwise without abnormality. Complications: No immediate complications. Impression: - Diverticulosis in the sigmoid colon and in the descending colon. - The examination was otherwise normal. - No specimens collected. Recommendation: - Repeat colonoscopy in 5 years for surveillance. Jonathan Gupta MD 06/08/2021 7:57:48 AM This report has been signed electronically. Number of Addenda: 0 Procedure Date: 06/08/2021 7:24:03 AM [address] [facility] [address] [place] [address] Jonathan Gupta MD GI PROCEDURE ORDERABLES Gabriela l Result * CERV/VAG CYTOPATH, THIN PREP AND HPV (11/10/2014) Endocervical us Abstract Provider PATHOLOGY/CYTOLOGY ORDERABLES Final Result [facility]# [id number] [address] [place] [address] from Last 3 Months or Most Recently Relevant to Health Maintenance [place] [address] OPEN ACCESS HMO Advance Directives For more information, please contact: [phone] * Full Code (Latest Code Status on File) Date Activated Date Inactivated Comments 06/08/2021 6:57 AM 06/08/2021 10:21 AM * Full Code Date Activated Date Inactivated Comments 04/04/2018 6:37 AM 04/04/2018 1:25 PM * Full Code Date Activated Date Inactivated Comments 10/31/2017 6:38 PM 11/01/2017 6:37 PM * Full Code Date Activated Date Inactivated Comments 12/03/2010 7:27 AM 12/06/2010 1:59 PM * Full Code Date Activated Date Inactivated Comments 06/24/2010 8:58 AM 06/24/2010 4:26 PM Care Teams Metallurgical Analyst Relationship Specialty Start Date End Date Vickie Melton MD [address] [place] [address] PCP - General Internal Medicine 12/18/20
--- OUTSIDE RECORDS SUMMARY | 2025-03-10 06:29 | XMS_ITS | Clinical Summary ---
Author Organization [facility] Address [address] [place] [address] Care Team Providers Care Bottler Name Role Phone Unavailable Primary Care Provider Unavailabl e Social History Tobacco Use Types Packs/Day Years Used Date Smoking Tobacco: Never Assessed Comments Unknown Sex and Gender Information Value Date Recorded Sex Assigned at Not on file Legal Sex Female 6:21 PM CDT Gender Identity Not on file Sexual Orientation Not on file Last Filed Vital Signs Vital Sign Reading Time Taken Comments Blood Pressure 104/62 11/15/2012 3:56 PM OPERATIONS BUSINESS PARTNER Pulse 91 11/15/2012 3:56 PM OPERATIONS BUSINESS PARTNER Temperature - - Respiratory Rate - - Oxygen Saturation - - Inhaled Oxygen Concentration - - Weight 84.4 kg (186 lb) 11/15/2012 3:56 PM OPERATIONS BUSINESS PARTNER Height - - Body Mass Index - - Plan of Treatment Health Maintenance Due Date Last Done Comments Cervical Cancer Screening Pa p Smear (Age 30 to 64) Every 3 Years 1965 Colorectal Cancer Screening Colonoscopy (10 Years) 1965 Annual Physical 1966 Hepatitis C 1981 DTaP, Tdap and Td Vaccines ( 1 - Tdap) 1982 Cervical Cancer Screening Pa p with HPV Testing (Age 30 to 64) Every 5 Years 1993 Cervical Cancer Screening with HPV 1993 Mammogram Screening 2003 Pneumococcal Vaccine: 50+ Ye ars (1 of 1 - PCV) 2013 Zoster Vaccines (1 of 2) 2013 COVID-19 Vaccine (2023-2 5 season) 2024 RSV Immunization or 60+ Years (1 - 1-dose 75+ series) 2038 Meningococcal B Vaccine Aged Out No l onger eligible based on patient's age to complete this topic Meningococcal Vaccine Aged Out No flaquito patricia eligible based on patient's age to complete this topic RSV Immunizations Under 20 Months Aged Out No longer eligible based on patient's age to complete this topic
--- NOTE | 2025-03-10 06:39 | ECG_ITS ---
Test Date: 2025-03-10 06:42:42 Measurements Intervals [place] Rate: 98 P: 44 [place]: 160 QRS: 11 QRSD: 95 T: 56 QT: 346 QTc: 443 Interpretive Statements SINUS RHYTHM INCOMPLETE RIGHT BUNDLE BRANCH BLOCK BASELINE ARTIFACT- I, II, III, AVR, AVL, AVF, V1-V3 BORDERLINE ECG No previous ECG available for comparison Electronically Signed On 03-10-2025 07:56:17 CDT by Marquise Duval D.O.
[2025-03-10 06:49] LABS: Basophils Absolute Auto 0.1 K/mm3 (0.0-0.1); Basophils Percent Auto 0.7 % (0.2-1.2); Eosinophils Absolute Auto 0.2 K/mm3 (0-0.3); Eosinophils Percent Auto 3.1 % (0-4.4); Hematocrit 43.4 % (37.0-47.0); Hemoglobin 14.1 g/dL (12.0-15.0); Immature Granulocyte Absolute 0.02 K/mm3 (0.00-0.031); Immature Granulocyte Percent A 0.3 % (0-0.5); Lymphocytes Percent Auto 41.9 % (18.3-44.2); Mean Corpuscular HGB Conc 32.5 g/dl (32-36); Mean Corpuscular Hemoglobin 29.5 pg (26-34); Mean Corpuscular Volume 90.8 fl (80-100); Mean Platelet Volume 8.8 fl (7.4-10.4); Monocytes Absolute Auto 0.6 K/mm3 (0.1-0.6); Monocytes Percent Auto 8.4 % (2.6-8.5); Neutrophils Percent Auto 45.6 % (45.5-73.1); Platelet Count Result 306 k/mm3 (150-375); Red Blood Count 4.78 M/mm3 (4.2-5.4); Red Cell Distribution Width 12.9 % (11.5-14.5); White Blood Count 6.7 K/mm3 (4.5-10.0)
[2025-03-10 07:00] LABS: Alanine Aminotransferase 48 U/L (6-35); Albumin Level 4.7 g/dL (3.5-5.1); Alkaline Phosphatase 71 U/L (38-126); Anion Gap 11 mmol/L (4-12); Aspartate Amino Transferase 71 U/L (14-36); Bilirubin,Total 0.7 mg/dL (0.2-1.3); Blood Urea Nitrogen 21 mg/dL (7-17); Calcium 9.7 mg/dL (8.4-10.2); Carbon Dioxide 24 mmol/L (22-30); Chloride 106 mmol/L (98-107); Estimated CRCL calculation 74 ml/min; Estimated Glomerular Filt Rate > 60; Glucose 141 mg/dL (65-110); Lipase 61 U/L (23-300); Potassium 3.7 mmol/L (3.4-5.0); Sodium 141 mmol/L (137-145)
[2025-03-10 07:09] LABS: INR 0.9; Prothrombin Time 12.3 Seconds (11.1-14.7)
[2025-03-10 07:10] LABS: Partial Thromboplastin Time 33.1 Seconds (22.3-36.8); Troponin I < 0.012 ng/mL (0.000-0.034)
--- OUTSIDE RECORDS SUMMARY | 2025-03-10 07:33 | XMS_ITS | Clinical Summary ---
Author Organization [facility] [place] Address [address] [place] [address] Phone Care Team Providers Care Access Representative Name Role Phone Vickie Melton MD Primary [...] (Nasacort) 55 mcg nasal spray Administer 1 [place] in each nostril daily. 4 Active Advair [...] Phoenix MD Referring Provider: Lio Phoenix MD [address] [place] [address] Other: Dr Joyce Ríos MD Problem Noted [...] 3. 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 Gender Identity Not on file Sexual Orientation [...] Description 09/03/2025 11:20 AM CDT Office Visit [facility] Internal Medicine - [address] [address] Vickie Melton MD [address] [place] [address] Health Maintenance Due Date Last [...] 08/07/2024, 12/02/2019 Medical Devices Implanted Type Area Running Specialist Device Identifier Shelf Expiration Date Model / Serial / Lot Alloderm Rtu Cntr 1.6sq Mm [id number] - [id number] Implanted:Qt y: 1 on 10/31/2017 by Juancarlos Harrison MD at [facility] Biological Right: Breast LIFECELL MICHAEL [id number] 09/12/2019 [id number] / / [id number] Description:REQ#[id number] Alloderm Rtu Cntr 1.6sqmm [id number] - [id number] Implanted:Qt y: 1 on 10/31/2017 by Juancarlos Harrison MD at [facility] Biological Bilateral : Breast LIFECELL MICHAEL [id number] 04/12/2019 [id number] / / [id number] Description:SPLIT IN 2, SMAL L PIECE USED ON LEFT SIDE REQ#[id number] Alloderm Rtu Cntr 1.6sq Mm [id number] - [id number] Implanted:Qt y: 1 on 10/31/2017 by Juancarlos Harrison MD at [facility] Biological Left: Breast LIFECELL MICHAEL [id number] 08/12/2019 [id number] / / [id number] Description:REQ#[id number] Scx 200cc Natrelle Inspira Implanted:Qt y: 1 on 10/31/2017 by Juancarlos Harrison MD at [facility] Mammary Right: Breast [id number] 08/22/2022 SCX-200 / [id number] / ALLERGAN Mammary Inspira Cohesive 285ml Scx-285 - [id number] Implanted:Qt y: 1 on 04/04/2018 by Juancarlos Harrison MD at [facility] Left: Breast ALLERGAN- MEDICAL 03/26/2022 SCX-285 / [id number] / [id number] - Vascular Access Ports - 1 - Port Pwrprt Mri 8fr [id number] Implanted:Qt y: 1 on 06/24/2010 at [facility] Port Left: Chest Wall CR BARD- ACCESS SYS 04/13/2012 [id number] / [id number] / [id number] Explanted Type Area Running Specialist Device Identifier Shelf Expiration Date Model / Serial / Lot Natrelle Inspira Cohesive 225cc Implanted:Qty: 1 on 10/31/2017 by Juancarlos Harrison MD at [facility] Explanted:Qty: 1 on 04/04/2018 by Juancarlos Harrison MD at [facility] Left: Breast ALLERGAN- MEDICAL [id number] 06/20/2022 SCX-225 / [id number] / Description:Both Allergan br east implants are processed on requisition [id number]. Procedures Procedure Name Priority Date/Time Associated Diagnosis [...] A1C 6.0(H) <5.7 % of total Hgb [facility] Comment: For someone without known diabetes, [...] children. ESTIMATED AVERAGE GLUCOSE (MG/DL) 126 mg/dL [facility] ESTIMATED AVERAGE GLUCOSE (MMOL/L) 7.0 mmol/L [facility] Comment: This test was performed on the Agustin david c503 platform. Effective 01/29/24, a change in test platforms from the Escalera Repossession Agent to the Agustin david c503 may have shifted HbA1c results compared to historical results. Based on laboratory validation testing conducted at [employer], the Agustin platform relative to the Escalera [...] platforms is not recommended. Test Performed at: [facility] [address] [id number] Evangelina Burks MD Blood 08/07/2024 11:4 8 AM CDT 08/08/2024 5:47 AM CDT Micaela Higuera MD CHEMISTRY ORDERABLES Final Res ult [facility] [phone] [address] [facility] [address] [place] [address] * COLONOSCOPY REPORT (06/08/2021 1:42 PM CDT) Narrative Procedure Note Jonathan Gupta MD - 06/08/2021 7:57 AM CDT [facility] Endoscopy Patient Name: Talon Puentes [...] Addenda: 0 Procedure Date: 06/08/2021 7:24:03 AM [address] [facility] [address] [place] [address] Jonathan Gupta MD GI PROCEDURE ORDERABLES Gabriela l Result * CERV/VAG CYTOPATH, THIN PREP AND HPV (11/10/2014) Endocervical us Abstract Provider PATHOLOGY/CYTOLOGY ORDERABLES Final Result [facility]# [id number] [address] [place] [address] from Last 3 Months or Most Recently Relevant to Health Maintenance [place] [address] [place] [address] OPEN ACCESS HMO Advance Directives For more information, please contact: [phone] * Full Code (Latest Code Status on [...] 8:58 AM 06/24/2010 4:26 PM Care Teams Access Representative Relationship Specialty Start Date End Date Vickie Melton MD [address] [place] [address] PCP - General Internal Medicine 12/18/20
--- OUTSIDE RECORDS SUMMARY | 2025-03-10 07:33 | XMS_ITS | Encounter Summary ---
Author Organization [facility] Address [address] [place] [address] Care Team Providers Care Aquacultural Worker Supervisor Name Role Phone Vickie Melton MD Primary Care Provider + Reason for Visit * Reason Comments Question Patient Communication Information Encounter Details Date Type Department Care Team (Late st Contact Info) Description 08/19/2024 Telephone [facility] Internal Medicine - [id number] [place] [address] Vickie Melton MD [address] [place] [address] Question; Patient Communication; Information Social History Tobacco Use Types Packs/Day Years Used Date Smoking Tobacco: Never Smokeless Tobacco: Never Alcohol Use Standard Drinks/Week Comments No 0 (1 standard drink = 0.6 oz pur e alcohol) Comments No Sex and Gender Information Value Date Recorded Sex Assigned at Not on file 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 Patient informed of additional [employer] Resources and expresses intent to utilize walk-in and [facility]. Phone Management by Nurse: For cough: recommend [...] - 08/19/2024 10:04 AM CDT Copied from [facility] #[id number]. Topic: Patient or Caregiver Communication Request >> Aug 19, 2024 10:03 AM Mary Turner wrote: Patient or Caregiver requesting advice Caller: Talon Puentes Patient/Caregiver Callback Number: [phone] (home) Call Notes: Talon Puentes asking if Dr Melton has seen her MMM and asking to be updated on Strep test * Telephone Encounter - Stephanie Pedro - 08/19/2024 8:48 AM CDT Copied from [facility] #[id number]. Topic: Patient or Caregiver Communication Request >> Aug 19, 2024 8:45 AM Stephanie Henson wrote: Patient or Caregiver insisting that a message be sent to Care Team Caller: Talon Patient/Caregiver Callback Number: [phone] Call Notes: pt tried to use [employer] and she has been unable to access the [employer] and is needing a call back about getting a in regarding a strep test * Telephone Encounter - Reymauricio Ramirezzachary - 08/19/2024 8:21 AM CDT Copied from [facility] #[id number]. Topic: Patient or Caregiver Communication Request >> Aug 19, 2024 8:20 AM Erica Henson wrote: Patient or Caregiver insisting that a message be sent to Care Team Caller: Talon Puentes Patient/Caregiver Callback Number: [phone] (home) Call Notes: do we do rapid strep test in the office? documented in this encounter Plan of Treatment Upcoming Encounters Date Type Department Care Team (Late st Contact Info) Description 09/03/2025 11:20 AM CDT Office Visit [facility] Internal Medicine - [address] [address] Vickie Melton MD [address] [place] [id number] documented as of this encounter Visit Diagnoses Not on filedocumented in this encounter Care Teams Aquacultural Worker Supervisor Relationship Specialty Start Date End Date Vickie Melton MD [address] [place] [id number] PCP - General Internal Medicine 12/18/20 documented as of this encounter
--- OUTSIDE RECORDS SUMMARY | 2025-03-10 07:33 | XMS_ITS | Clinical Summary ---
Author Organization [facility] Address [address] [place] [address] Care Team Providers Care Drapery Estimator Name Role Phone Unavailable Primary Care Provider [...] Comments Blood Pressure 104/62 11/15/2012 3:56 PM DIRECTOR PACKAGING Pulse 91 11/15/2012 3:56 PM DIRECTOR PACKAGING Temperature - - Respiratory Rate - - Oxygen Saturation - - Inhaled Oxygen Concentration - - Weight 84.4 kg (186 lb) 11/15/2012 3:56 PM DIRECTOR PACKAGING Height - - Body Mass Index - [...]
--- NOTE | 2025-03-10 07:51 | PC.NURSE ---
Pt refusing pain medication at this time. Pt states her chest pain is a 2/10, midsternal and describes it as heaviness. Pt instructed to notify this RN of worsening pain.
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
[2025-03-10 09:48] LABS: Troponin I < 0.012 ng/mL (0.000-0.034)
--- NOTE | 2025-03-10 09:48 | ECG_ITS ---
Test Date: 2025-03-10 09:52:09 Measurements Intervals [place] Rate: 87 P: 47 VA: 165 QRS: 12 QRSD: 95 T: 46 QT: 370 QTc: 446 Interpretive Statements SINUS RHYTHM INCOMPLETE RIGHT BUNDLE BRANCH BLOCK BORDERLINE ECG Compared to ECG 03/10/2025 06:42:42 No significant changes Electronically Signed On 03-10-2025 09:57:34 CDT by Marquise Duval D.O.
== END 2025-03-10 10:16 | disposition home or self-care (01) ==
PROVIDERS: Preventive Medicine Aerospace Medicine; Emergency Provider Emergency Medicine; PCP Internal Medicine
DX: K80.20 Calculus of gallbladder without cholecystitis without obstruction (principal); E78.5 Hyperlipidemia, unspecified; E55.9 Vitamin D deficiency, unspecified; Z85.3 Personal history of malignant neoplasm of breast; Z85.038 Personal history of other malignant neoplasm of large intestine; I45.10 Unspecified right bundle-branch block
CPT/HCPCS: 36415; 71046; 76705; 80053; 83690; 84484; 85025; 85610; 85730; 93005; 99284

== ENCOUNTER 2025-04-09 00:34 | Day surgery (SDC) | payer OTHER, SELFPAY ==
--- NOTE | 2025-03-27 15:52 | PC.NURSE ---
Report to the Outpatient Waiting Room, entrance under the green pavilion located off [facility], at time 1100 on date _04/09/25 . Planned Procedure Time: 1300 .? Time changes happen often and if your time is changed the preop area will call you the afternoon before. - You and your visitor will be asked to self-screen and do not enter if you have any COVID symptoms. Please call surgeon if you need to reschedule. - A mask is optional within the hospital at this time. Patients may have clear liquids (water, carbonated beverages, clear teas, apple juice) until 3 hours prior to surgery with a maximum of 20 ounces. - No food from midnight until time of surgery and no smoking, or chewing tobacco (or any form of nicotine). No chewing gum, candy or mints. Take only the following medications with a SIP of water on the morning of surgery: ___USE MDI DO NOT STOP ANY OF YOUR OTHER PRESCRIPTION MEDICATIONS PRIOR TO SURGERY EXCEPT THE FOLLOWING Hold all vitamins and supplements for 3 days per anesthesiologist. Medications to discontinue per physician MULTIVIT AND FISH OIL Date to take last dose___04/06/25 Please no make-up, nail kazakh, hairspray, perfume, deodorant, or body powder the day of surgery.? No jewelry (including any body piercings) or valuables the day of surgery, leave them at home.? Please take a shower or bath the night before, or the morning of, surgery with an antibacterial soap.? Wear comfortable, loose fitting clothing.? - Jewelry must be removed prior to entering the operating room.? Rings and piercings that are not removed may be cut off. - The hospital will not accept responsibility for valuables.? - Please leave all valuables, including medications, at home the day of surgery. If you are going home after surgery, a licensed driver's license reviewing officer must drive you home.? - NO public transportation without another adult if you receive anesthesia. - We recommend that an adult stay with you for 24 hours following discharge. - We also recommend that you do not drive, make important decision, drink alcoholic beverages, or take any drugs that were not prescribed by your health care provider for at least 24 hours after your discharge time. Follow any additional instructions given to you from your surgeon. Telephone instructions given to _Jae and asked if any additional questions and then verbalized understanding. Patient advised to call surgeon office or pre surgery nurse liaison [phone] if any additional questions.
--- OUTSIDE RECORDS SUMMARY | 2025-04-09 00:37 | XMS_ITS ---
Author Organization [facility] ([address]) Address [address] [facility] [address] [place] [address] Care Team Providers Care Director Of Housing And Energy Services Name Role Phone Vickie Melton Primary Care Provider UnavailSarita Weiner Unavailable [phone] [employer], Provider Unavailable Unavailab le Allergies Allergen (clinical drug ingredient) Drug/Non Drug Allergy documented on EMR Reaction Allergy Type Onset Date Status penicillamine penicillAMINE Unknown Drug Allergy Active REASON FOR VISIT [facility] Conversion Encounter Medications Medication SIG (Take, Route, Frequency, Duration) Notes Start Date End Date Status Cholecalciferol *Please review a nd pick correct strength-formulati on from [facility] options. If intended option is not shown, discontinue and re-order from Quick Search* Active traZODone HCl 50 MG as directed orally Active Advair Diskus 250 MCG-50 MCG 1 INH INHALED 2 TIMES A DAY *Please review and pick correct strength-formulati on from [facility] options. If intended option is not shown, discontinue and re-order from Quick Search* 03/12/2024 Active Albuterol Sulfate HFA 108 (90 Base) MCG/ACT 2 puff(s) inhaled every 6 hours Active AEROCHAMBER MDI SPACER - MOUTHPIECE (ADULT) N/A DIRECTED PO PER ASTHMA ACTION PLAN for 30 DAY(S) *Please review for potential replacement for e-prescription and drug interaction check* Active Encounters Encounter Location Date Provider Diagnosis [address] [address] 04/27/2024 Provider Maria Del Carmen Shortness of breath R06.02 Assessments Encounter Date Diagnosis (ICD Code) Assessment Notes Treatment Notes Treatment Clinical Notes Section Notes 04/27/2024 Shortness of breath (ICD-10 - R06.02) Plan Of Treatment Medication Medication Name Sig Start Date Stop Date Notes Advair Diskus 250 MCG-50 MCG 1 INH INHALED 2 TIMES A DAY 03/12/2024 *Please review and pick correct strength-formulation from [facility] options. If intended option is not shown, discontinue and re-order from Quick Search* Albuterol Sulfate HFA 108 (90 Base) MCG/ACT 2 puff(s) inhaled every 6 hours AEROCHAMBER MDI SPACER - MOUTHPIECE (ADULT) N/A DIRECTED PO PER ASTHMA ACTION PLAN for 30 DAY(S) *Please review for potential replacement for e-prescription and drug interaction check* Next Appt Details Provider Name:Sarita SommerJhon Isidro , 06/26/2025 03:00:00 PM, [address] [facility], [address], [address], Progress Notes * Mike PUENTESeDOB:1965 (59 yo F)Acc No.[id number]:04/27/2024 Patient: Bennie Talon SNELL Provider: Shanta De :1965 A ge:58 Y S ex:Female Date:04/27/2024 [facility] Pcp:Vickie Melton Subjective: * Chief Complaints: * 1 . Multum To Med[facility] Conversion Encounter. * Medical History: * Medications: T aking Cholecalciferol , Notes to Pharmacist: *Please review and pick correct strength-formulation from [facility] options. If intended option is not shown, discontinue and re-order from Quick Search*, Taking traZODone HCl 50 MG Tablet as directed orally * Allergies: p enicillAMINE. Objective: * Vitals: Assessment: * Assessment: 1. S hortness of breath - R06.02 (Primary) Plan: * Treatment: * Billing Information: * Visit Code: * Procedure Codes: * Electronic signature of Paris MOCK-Migration on 04/09/2025 at 12:37 AM CDT Sign off status: Pending * Provider: Shanta kern Migration Date: 04/27/2024 Generated for José Miguel gilbert/Tracy/Nolan on: 0 04/09/2025 12:37 AM CDT
--- OUTSIDE RECORDS SUMMARY | 2025-04-09 00:37 | XMS_ITS | Clinical Summary ---
Author Organization [facility] Address [address] [place] [address] Phone Care Team Providers Care Removable Prosthodontist Name Role Phone Vickie Melton MD Primary Care Provider + Allergies Active Allergy Reactions Criticality Noted Date Comments Penicillins Hives High 06/04/2010 Medications MULTIVITAMINS (DAILY MULTIVITAMIN ORAL) Take by mouth daily. Active 0mega-3 fatty acids-vitamin E (FISH OIL) 1,000 mg Capsule Take 1,000 mg by mouth 2 times daily. Active conjugated estrogens (PREMARIN) 0.625 mg/gram vaginal creamIndications :use daily x 1 week then three x per week Insert 0.5 Grams vaginally daily at bedtime. 30 Gram 1 01/05/20 21 Active TURMERIC ORAL Take by mouth. Active albuterol sulfate HFA 90 mcg/actuation aerosol inhalerIndicatio ns:COVID-19 virus infection,Cough, unspecified type TAKE 2 PUFFS BY INHALATION EVERY 6 HOURS NEEDED FOR SHORTNESS OF BREATH 8.5 Gram 10/06/20 23 Active triamcinolone acetonide (Nasacort) 55 mcg nasal spray Administer 1 Pattison in each nostril daily. 07/18/20 24 Active Advair Diskus 250-50 mcg/dose disk inhaler Take 1 Puff by inhalation 2 times daily. 03/12/20 24 Active ergocalciferol, vitamin D2, (VITAMIN D ORAL) Take 1 Capsule by mouth daily. Active CALCIUM CARBONATE ORAL Take 1 Tablet by mouth daily. Active traZODone (DESYREL) 50 mg tabletIndication s:Insomnia, unspecified type TAKE 1 TABLET(50 MG) BY MOUTH DAILY AT BEDTIME 90 Tablet 1 03/12/20 25 Active traZODone (DESYREL) 50 mg tabletIndication s:Insomnia, unspecified type TAKE 1 TABLET(50 MG) BY MOUTH DAILY AT BEDTIME 30 Tablet 1 12/11/19 25 025 Discontinued Active Problems Patient Care Coordination No te Formatting of this note migh t be different from the original. Primary Care: Lio Phoenix MD Referring Provider: Lio Phoenix MD [address] [place] [address] Other: Dr Joyce Ríos MD Problem Noted [...] Encounters Date Type Department Care Team Description 04/03/2025 External Device Data [facility] ABSTRACTION Provider, Abstract 04/02/2025 External Device Data [facility] ABSTRACTION Provider, Abstract 03/18/2025 Abstract [facility] [address] [address] Vickie Melton MD 03/11/[address] [address] Suzette Young, MANAGER OF SOFTWARE DEVELOPMENT Insomnia, unspecified type 03/10/2025 Orders Only [facility] [address] [address] Provider, Abstract 02/11/2025 External Device Data [facility] ABSTRACTION Provider, [...] External Device Data [facility] ABSTRACTION Provider, Abstract from Last 3 Months Immunizations Immunization Administration [...] on file 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 Gender Identity Not on file Sexual Orientation [...] 11:12 AM CDT Height 162.6 cm (5' 4) 08/07/2024 11:12 AM CDT Body Mass Index 31.93 08/07/2024 11:12 AM CDT Plan of Treatment Upcoming Encounters Date Type Department Care Team (Late st Contact Info) Description 09/03/2025 11:20 AM CDT Office Visit [facility] - [address] [address] Vickie Melton MD [address] [place] [address] Health Maintenance Due Date Last [...] 08/07/2024, 12/02/2019 Medical Devices Implanted Type Area Cake Icer Device Identifier Shelf Expiration Date Model / Serial / Lot Alloderm Rtu Cntr 1.6sq Mm [id number] - [id number] Implanted:Qt y: 1 on 10/31/2017 by Juancarlos Harrison MD at [facility] Right: Breast LIFECELL MICHAEL [id number] 09/12/2019 [id number] / / [id number] Description:REQ#[id number] Alloderm Rtu Cntr 1.6sqmm [id number] - [id number] Implanted:Qt y: 1 on 10/31/2017 by Juancarlos Harrison MD at [facility] Biological Bilateral : Breast LIFECELL MICHAEL [id number] 04/12/2019 [id number] / / [id number] Description:SPLIT IN 2, SMAL L PIECE USED ON LEFT SIDE REQ#[id number] Alloderm Rtu Cntr 1.6sq Mm [id number] - [id number] Implanted:Qt y: 1 on 10/31/2017 by Juancarlos Harrison MD at [facility] Biological Left: Breast LIFECELL MICHAEL [id number] 08/12/2019 [id number] / / [id number] Description:REQ#[id number] Scx 200cc Natrelle Inspira Implanted:Qt y: 1 on 10/31/2017 by Juancarlos Harrison MD at [facility] Mammary Right: Breast [id number] 08/22/2022 SCX-200 / [id number] / ALLERGAN Mammary Inspira Cohesive 285ml Scx-285 - [id number] Implanted:Qt y: 1 on 04/04/2018 by [place]ancarlos [place] [facility] [place]: Breast ALLERGAN- MEDICAL 03/26/2022 SCX-285 / [id number] / [id number] - Vascular Access Ports - 1 - Port Pwrprt Mri 8fr [id number] Implanted:Qt y: 1 on 06/24/2010 at [facility] Port Left: Chest Wall CR BARD- ACCESS SYS 04/13/2012 [id number] / [id number] / [id number] Explanted Type Area Cake Icer Device Identifier Shelf Expiration Date Model / Serial / Lot Zaida Knox Cohesive 225cc Implanted:Qty: 1 on 10/31/2017 by Juancarlos Harrison MD at [facility] Explanted:Qty: 1 on 04/04/2018 by Juancarlos Harrison MD at [facility] Mammary Left: Breast ALLERGAN- MEDICAL [id number] 06/20/2022 SCX-225 / [id number] / Description:Both Allergan br east implants are processed on requisition [id number]. Procedures Procedure Name Priority Date/Time Associated Diagnosis Comments US RIGHT UPR QUADRANT Routine 03/10/2025 10:24 AM CDT XR CHEST PA AND LATERAL 2 VW Routine 03/10/2025 10:21 AM CDT HEMOGLOBIN A1C Routine 08/07/2024 11:48 AM CDT Encounter for general adult medical examination with abnormal findings COLONOSCOPY REPORT 06/08/2021 1: 42 PM CDT CERV/VAG CYTOPATH, THIN PREP AND HPV Routine 11/10/2014 from Last 3 Months or Most Recently Relevant to Health Maintenance Results * US RIGHT UPR QUADRANT (03/10/2025 10:24 AM CDT) Anatomical Region Laterality Modality Abdomen Ultrasound us Abstract Provider US ORDERABLES Final Result * XR CHEST PA AND LATERAL 2 VW (03/10/2025 10:21 AM CDT) Anatomical Region Laterality Modality Chest Other us Abstract Provider DIAGNOSTIC IMAGING ORDERABLES Final Result * (ABNORMAL) HEMOGLOBIN A1C (08/07/2024 11:48 AM CDT) HEMOGLOBIN A1C 6.0(H) <5.7 % of total Hgb [facility] Comment: For someone without known diabetes, [...] children. ESTIMATED AVERAGE GLUCOSE (MG/DL) 126 mg/dL [facility] ESTIMATED AVERAGE GLUCOSE (MMOL/L) 7.0 mmol/L [facility] Comment: This test was performed on the Agustin daivd c503 platform. Effective 01/29/24, a change in test platforms from the Escalera Lasting Machine Operator Hand Method to the Agustin david c503 may have shifted HbA1c results compared to historical results. Based on laboratory validation testing conducted at [email or web address], the Agustin platform relative to the Escalera [...] platforms is not recommended. Test Performed at: [facility] [address] [place] [address] Evangelina Burks MD Blood 08/07/2024 11:4 8 AM CDT 08/08/2024 5:47 AM CDT Micaela Higuera MD CHEMISTRY ORDERABLES Final Res ult [facility] [phone] [facility] [address] [place] [address] * COLONOSCOPY REPORT (06/08/2021 1:42 PM CDT) Narrative Procedure Note Jonathan Gupta MD - 06/08/2021 7:57 AM CDT [facility] Patient Name: Talon Puentes Procedure Date: [...] Addenda: 0 Procedure Date: 06/08/2021 7:24:03 AM [address] [address] Jonathan Gupta MD GI PROCEDURE ORDERABLES Gabriela l Result * CERV/VAG CYTOPATH, THIN PREP AND HPV (11/10/2014) Endocervical Abstract Provider PATHOLOGY/CYTOLOGY ORDERABLES Final Result [facility]# [id number] [address] [place] [address] from Last 3 Months or Most Recently Relevant to Health Maintenance [place] [address] [facility] OPEN ACCESS HMO Advance Directives For more information, please contact: [phone] * Full Code (Latest Code Status on [...] 8:58 AM 06/24/2010 4:26 PM Care Teams Removable Prosthodontist Relationship Specialty Start Date End Date Vickie Melton MD [address] [place] [address] PCP - General Internal Medicine 12/18/20
--- OUTSIDE RECORDS SUMMARY | 2025-04-09 00:37 | XMS_ITS | Patient Health Record ---
Author Organization [facility] Address [address] [facility] [address] [place], [place] [address] Care Team Providers Care Chair Inspector And Leveler Name Role Phone Vickie Melton Primary Care Provider Dayan Whittaker Unavailable [phone] ALLERGIES Allergen (clinical drug ingredient) Drug/Non Drug Allergy documented on EMR Reaction Allergy Type Onset Date Status penicillin hives Drug Allergy Active REASON FOR REFERRAL No Information MEDICATIONS Medication SIG (Take, Route, Frequency, Duration) Notes Start Date End Date Status traZODone 50 mg 1 tab(s) orally 2 ti mes a day Active Vitamin D3 5000 intl units as directed o rally once a day Active Fish Oil 1200 mg 1 cap(s) orally 3 ti mes a day Active Tumeric orally Active calcium po Active multivitamin Vitamin A, D and C 1 mL orally once a day Activ e SOCIAL HISTORY Tobacco Use: Social History Observation Description Date Details (start date - stop date) Never Smoker NA - NA Sex Assigned At : Social History Observation Description Sex Assigned At Unknown Tobacco Use: Question Answer Notes Smoking Status nonsmoker PROBLEMS Problem Type ICD Code Onset Dates Problem Status W/U Status Risk SNOMED Code Notes Problem GEOVANI positive (R76.8) Active confirmed 885429367 Problem Primary generalized (osteo)arthriti s (M15.0) Active confirmed Primary generalised osteoarthritis (535776025) Problem 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 053881464 PLAN OF TREATMENT No Information Insurance Providers Payer Name Payer Address Payer Phone Subscriber Number Group Number Insured Name Patient Relationship to Insured Coverage Start Date Coverage End Date [facility] [address] [address] [place] [address] [id number] Talon FERREIRA Self - patient is the insured 1 [employer] [address] [address] [id number] Talon FERREIRA Self - patient is the insured 9 MEDICAL (GENERAL) HISTORY Medical History History ICD Code Breast cancer s.p chemo/XRT and Tamoxife n x 5 years loss of hearing Ringing in ears anxiety indigestion hemorrhoids weight gain Lumps in Breasts Hot Flashes painful intercourse Surgical History Surgery Date(Month/Year) lumpectomy mastectomy breast surgery
--- OUTSIDE RECORDS SUMMARY | 2025-04-09 00:37 | XMS_ITS | Encounter Summary ---
Author Organization [facility] Address [address] [place] [address] Care Team Providers Care Mud Temperer Name Role Phone Vickie Melton MD Primary Care Provider + Reason for Visit * Reason Comments Question Patient Communication Information Encounter Details Date Type Department Care Team (Late st Contact Info) Description 08/19/2024 Telephone [facility] Internal Medicine - [id number] [place] [address] Vickie Melton MD [address] [place] [address] Question; Patient Communication; Information Social History Tobacco Use Types Packs/Day Years Used Date Smoking Tobacco: Never Smokeless Tobacco: Never Alcohol Use Standard Drinks/Week Comments No 0 (1 standard drink = 0.6 oz pur e alcohol) Comments No Sex and Gender Information Value Date Recorded Sex Assigned at Not on file Legal Sex 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 Patient informed of additional [employer] Resources and expresses intent to utilize walk-in and [facility]. Phone Management by Nurse: For cough: recommend [...] - 08/19/2024 10:04 AM CDT Copied from [facility] #[id number]. Topic: Patient or Caregiver Communication Request >> Aug 19, 2024 10:03 AM Mary Turner wrote: Patient or Caregiver requesting advice Caller: Talon Puentes Patient/Caregiver Callback Number: [phone] (home) Call Notes: Talon Puentes asking if Dr Melton has seen her MMM and asking to be updated on Strep test * Telephone Encounter - Stephanie Pedro - 08/19/2024 8:48 AM CDT Copied from [facility] #[id number]. Topic: Patient or Caregiver Communication Request >> Aug 19, 2024 8:45 AM Stephanie Henson wrote: Patient or Caregiver insisting that a message be sent to Care Team Caller: Talon Patient/Caregiver Callback Number: [phone] Call Notes: pt tried to use [facility] and she has been unable to access the [facility] and is needing a call back about getting a in regarding a strep test * Telephone Encounter - Reymauricio Ramirezzachary - 08/19/2024 8:21 AM CDT Copied from [facility] #[id number]. Topic: Patient or Caregiver Communication Request >> Aug 19, 2024 8:20 AM Erica Henson wrote: Patient or Caregiver insisting that a message be sent to Care Team Caller: Talon Puentes Patient/Caregiver Callback Number: [phone] (home) Call Notes: do we do rapid strep test in the office? documented in this encounter Plan of Treatment Upcoming Encounters Date Type Department Care Team (Late st Contact Info) Description 09/03/2025 11:20 AM CDT Office Visit [facility] Internal Medicine - [address] [address] Vickie Melton MD [address] [place] [address] documented as of this encounter Visit Diagnoses Not on filedocumented in this encounter Care Teams Mud Temperer Relationship Specialty Start Date End Date Vickie Melton MD [address] [place] [address] PCP - General Internal Medicine 12/18/20 documented as of this encounter
--- OUTSIDE RECORDS SUMMARY | 2025-04-09 00:37 | XMS_ITS | Patient Health Record ---
Author Organization [facility] [employer] [place] ([address]) Address [address] [address] Care Team Providers Care Core Oven Tender Name Role Phone Vickie Melton Primary Care Provider UnavailSarita Weiner Unavailable [phone] [facility], Provider Unavailable Unavailab le Allergies Allergen [...] let Reviewed date:05/13/2024 09:40:56 PM Interpretation:Normal Performing Lab:[facility], [address] [place] [id number], Phone - [phone], Director - Mikey Notes/Report: WBC 5.7 3.4-10.8 [...] 8 Reviewed date:05/17/2024 09:20:58 PM Interpretation:Abnormal [facility]forming Lab[facility], [address] [place] [id number], Phone - [phone], Director - Kaycee Notes/Report: Class Description Levels of Specific IgE Class Description of Class ----- < 0.10 0 Negative 0.10 - 0.31 0/I Equivocal/Low 0.32 - 0.55 I Low 0.56 - 1.40 II Moderate 1.41 - 3.90 III High 3.91 - 19.00 IV Very High 19.01 - 100.00 V Very High >100.00 Very High Immunoglobulin E, Total 324 6-495 IU/mL R165-HkB D pteronyssinus 7.99 Class IV kU/L I551-MqS D farinae 8.96 Class IV kU/L L247-JkY Cat Dander 0.72 Class II kU/L U822-RkQ Dog Dander 6.74 Class IV kU/L X506-VbG Bermuda Grass 1.11 Class II kU/L O558-RcF Miguel Grass 0.69 Class II kU/L Z400-SeS Cockroach, Albanian <0.10 Class 0 kU/L Y104-EdE Penicillium chrysogen <0.10 Class 0 kU /L Y443-LsT Cladosporium herbarum <0.10 Class 0 kU /L C630-EiC Aspergillus fumigatus <0.10 Class 0 kU /L X185-EzV Alternaria alternata <0.10 Class 0 kU/ L J020-FpD Maple/Ware <0.10 Class 0 kU/L J186-FnW Bowman, Mountain <0.10 Class 0 kU/L A850-QcU Westland, White <0.10 Class 0 kU/L A165-IaR Elm, Lithuanian <0.10 Class 0 kU/L Y163-IwV Maple Hoyt Rapelje <0.10 Class 0 kU/L W679-SzS Greenville <0.10 Class 0 kU/L X615-WzV Geronimo, White <0.10 Class 0 kU/L F203-XmG Bramwell <0.10 Class 0 kU/L O170-WzU Pecan, Scioto <0.10 Class 0 kU/L P663-YpZ White Lesage <0.10 Class 0 kU/L A583-ReY Ragweed, Short 0.49 Class I kU/L I001-UiV Thistle, Malaysian <0.10 Class 0 kU/L T531-IkT Pigweed, Common 0.20 Class 0/I kU/L J830-IrM Rough Marshelder <0.10 Class 0 kU/L J242-RlX Mouse Urine <0.10 Class 0 kU/L Reason For Referral No Information Medications Medication SIG (Take, Route, Frequency, Duration) Notes Start Date End Date Status Cholecalciferol *Please review and pick correct strength-formulat ion from [employer] options. If intended option is not shown, [...] Status W/U Status Risk Notes Problem Wheezing (37638186) Wheezing (R06.2) Active confirmed Problem Chronic allergic conjunctivitis (39181858) Other chronic allergic conjunctivitis (H10.45) Active confirmed Problem Allergic rhinitis caused by pollen (disorder) (22544586) Allergic rhinitis due to pollen (J30.1) Active confirmed Problem Allergic rhinitis (05454884) Other allergic rhinitis (J30.89) Active confirmed Problem Chronic rhinitis (86442122) Chronic rhinitis (J31.0) Active confirmed Problem Hypertrophy of nasal turbinates (78400626) Hypertrophy of nasal turbinates (J34.3) Active confirmed Problem Uncomplicated mild persistent asthma (132527935) Mild persistent asthma, uncomplicated (J45.30) Active confirmed Problem Uncomplicated moderate persistent asthma (522719195) Moderate persistent asthma, uncomplicated (J45.40) Active confirmed Problem Uncomplicated severe persistent asthma (792485714) Severe persistent asthma, uncomplicated (J45.50) Active confirmed Problem Allergic rhinitis caused by animal hair and dander (077200840832721) Allergic rhinitis due to animal (cat) (dog) hair and dander (J30.81) Active confirmed Problem Shortness of breath (538349111) Shortness of breath (R06.02) Active confirmed Vital Signs Blood pressure diastolic 82 mm Hg 11/14/2024 Oximetry 98 % 11/14/2024 Height 64 in 11/14/2024 Blood pressure systolic 127 mm Hg 11/14/2024 Weight 186.8 lbs 11/14/2024 BMI 32.06 kg/m2 11/14/2024 Encounters Encounter Location Date Provider Diagnosis [address] [address] 04/27/2024 Provider [facility] Shortness of breath R06.[address] [place] [address] [address] 04/18/2024 Sarita Young Wheezing R06.2 ; Shortness of breath R06.02 ; Hypertrophy of nasal turbinates J34.3 ; Chronic rhinitis J31.0 and Adverse effect of penicillins, initial encounter T36.0X5A [address] [place] [address] [address] 07/18/2024 Sarita Young Wheezing R06.2 ; Shortness of breath R06.02 ; Allergic rhinitis due to pollen J30.1 ; Allergic rhinitis due to animal (cat) (dog) hair and dander J30.81 ; Other allergic rhinitis J30.89 and Adverse effect of penicillins, subsequent encounter T36.0X5D [place] [address] [address] 11/14/2024 Sarita Young Wheezing R06.2 ; Shortness of breath R06.02 ; Allergic rhinitis due to pollen J30.1 ; Allergic rhinitis due to animal (cat) (dog) hair and dander J30.81 ; Other allergic rhinitis J30.89 ; Adverse effect of penicillins, subsequent encounter T36.0X5D and Encounter for immunization Z23 [address] [address] 09/18/2024 Sarita Young Shortness of breath R06.[address] [address] 10/01/2024 Sarita Young [address] [address] 12/10/2024 Sarita Young [address] [address] 12/10/2024 Sarita Young [address] [address] 12/16/2024 Sarita Young Shortness of breath R06.[address] [address] 12/25/2024 Sarita Young [address] [address] 01/20/2025 Sarita Young Shortness of breath R06.[address] [address] 09/09/2024 Sarita Young Shortness of breath R06.[address] [address] 09/10/2024 Sarita Young Assessments Encounter Date Diagnosis (ICD Code) Assessment Notes Treatment Notes Treatment Clinical Notes Section Notes 04/18/2024 Wheezing (ICD-10 - R06.2) See plan [...] by 140 cc -Has noticed improvement when pet adoption counselor. Doing better on Advair - will refill [...] by 140 cc -Has noticed improvement when pet adoption counselor. - AAP was formulated and training with [...] by 140 cc -Has noticed improvement when pet adoption counselor. Doing better on Dulera- will refill PATRIA. [...] Treatment Next Appt Details Provider Name:Sarita Isidro , 06/26/2025 03:00:00 PM, [address] [facility], [address], [place], [address], Insurance Providers Payer Name Payer Address Payer Phone Subscriber Number Group Number Insured Name Patient Relationship to Insured Coverage Start Date Coverage End Date Vicki [address] [place], [place] [id number] Talon Puentes Self - patient is the insured 8 Medical (General) History Medical History History ICD Code breast cancer Surgical History Surgery Date(Month/Year) appendectomy mastectomy
[2025-04-09] MEDS: KETOROLAC 15 MG/ML VIAL (*BKC) IV PUSH (10:45)
[2025-04-09 11:35] VITALS: BP 119/85; PULSE 98; RESP 16; TEMP 36.3; O2SAT 100
[2025-04-09] MEDS: ACETAMINOPHEN 500 MG TABLET 1000 MG PO (11:35)
[2025-04-09] MEDS: LACTATED RINGERS 1,000 ML 30 ML IV CONT (11:35)
--- NOTE | 2025-04-09 11:40 | WPDHPUPDATE1 ---
History and Physical Update Update Date/Time: 04/09/25 11:40 History and Physical has been reviewed, including an updated exam of the patient. There are NO changes in the patient's condition. Risks, benefits, and alternatives have been discussed and questions answered. Patient agrees to proceed with procedure.
[2025-04-09 12:01] LABS: Amylase 57 U/L (30-110)
--- NOTE | 2025-04-09 13:52 | SUR.PREOP ---
pt is being discharged home with the understanding that she will be rescheduled for Monday the at 1200.
== END 2025-04-09 14:19 | disposition home or self-care (01) ==
PROVIDERS: PCP Internal Medicine; Visit Provider Surgery
PROC: 0FT44ZZ Resection of Gallbladder, Percutaneous Endoscopic Approach (ICD-10-PCS; CPT 47562; principal; 2025-04-09 13:00)
DX: K80.10 Calculus of gallbladder with chronic cholecystitis without obstruction (principal)
CPT/HCPCS: 47562; 36415; 82150; A9270; J1885; J7120

== ENCOUNTER 2025-04-11 00:52 | Day surgery (SDC) | payer OTHER, SELFPAY ==
[2025-04-09 14:32] VITALS: BMI 29.9
--- NOTE | 2025-04-09 14:38 | PC.NURSE ---
Report to the Outpatient Waiting Room, entrance under the green pavilion located off [facility], at time _1000_ on date _13-90-1623_. Planned Procedure Time: _1200_.? Time changes happen often and if your time is changed the preop area will call you the afternoon before. - You and your visitor will be asked to self-screen and do not enter if you have any COVID symptoms. Please call surgeon if you need to reschedule. - A mask is optional within the hospital at this time. Patients may have clear liquids (water, carbonated beverages, clear teas, apple juice) until 3 hours prior to surgery with a maximum of 20 ounces. - No food from midnight until time of surgery and no smoking, or chewing tobacco (or any form of nicotine). No chewing gum, candy or mints. Take only the following medications with a SIP of water on the morning of surgery: __Breyna inhaler___ DO NOT STOP ANY OF YOUR OTHER PRESCRIPTION MEDICATIONS PRIOR TO SURGERY EXCEPT THE FOLLOWING Hold all vitamins and supplements for 3 days per anesthesiologist. Medications to discontinue per physician Date to take last dose Please no make-up, nail guinean, hairspray, perfume, deodorant, or body powder the day of surgery.? No jewelry (including any body piercings) or valuables the day of surgery, leave them at home.? Please take a shower or bath the night before, or the morning of, surgery with an antibacterial soap.? Wear comfortable, loose fitting clothing. - Jewelry must be removed prior to entering the operating room.? Rings and piercings that are not removed may be cut off. - The hospital will not accept responsibility for valuables.? - Please leave all valuables, including medications, at home the day of surgery. If you are going home after surgery, a licensed local company hazmat driver must drive you home.? - NO public transportation without another adult if you receive anesthesia. - We recommend that an adult stay with you for 24 hours following discharge. - We also recommend that you do not drive, make important decision, drink alcoholic beverages, or take any drugs that were not prescribed by your health care provider for at least 24 hours after your discharge time. Follow any additional instructions given to you from your surgeon. Telephone instructions given to __Talon___and asked if any additional questions and then verbalized understanding. Patient advised to call surgeon office or pre surgery nurse liaison [phone] if any additional questions.
[2025-04-11] VITALS (12 sets, daily range): BP systolic 105–138; BP diastolic 51–79; PULSE 56–80; RESP 10–16; TEMP 36.7–36.9; O2SAT 93–100; BMI 29.9
--- OUTSIDE RECORDS SUMMARY | 2025-04-11 00:55 | XMS_ITS | Patient Health Record ---
Author Organization [facility] ([address]) Address [address] [address] Care Team Providers Care Battery Assembler Plastic Name Role Phone Vickie Melton Primary Care Provider UnavailSarita Weiner Unavailable [phone] [facility], Provider Unavailable Unavailab le Allergies Allergen (clinical drug ingredient) Drug/Non Drug Allergy documented on EMR Reaction Allergy Type Onset Date Status penicillamine penicillAMINE Unknown Drug Allergy Active Results Component Value Reference Range Notes -Respiratory Allergens w/Tot al IgE Area 8 Reviewed date:05/17/2024 09:20:58 PM Interpretation:Abnormal Performing Lab:[facility], [address] [place] [address] [id number], Phone - [phone], Director - Kaycee Notes/Report: Class Description Levels of Specific IgE Class Description of Class ----- < 0.10 0 Negative 0.10 - 0.31 0/I Equivocal/Low 0.32 - 0.55 I Low 0.56 - 1.40 II Moderate 1.41 - 3.90 III High 3.91 - 19.00 IV Very High 19.01 - 100.00 V Very High >100.00 Very High Immunoglobulin E, Total 324 6-495 IU/mL D199-JvP D pteronyssinus 7.99 Class IV kU/L Q612-ExU D farinae 8.96 Class IV kU/L I525-RgB Cat Dander 0.72 Class II kU/L M144-VjV Dog Dander 6.74 Class IV kU/L I707-VlH Bermuda Grass 1.11 Class II kU/L U248-KcR Miguel Grass 0.69 Class II kU/L S370-PnT Cockroach, Russian <0.10 Class 0 kU/L X206-KlI Penicillium chrysogen <0.10 Class 0 kU /L F678-HzB Cladosporium herbarum <0.10 Class 0 kU /L L438-VrD Aspergillus fumigatus <0.10 Class 0 kU /L T735-UlM Alternaria alternata <0.10 Class 0 kU/ L O727-HiZ Maple/Gold Hill <0.10 Class 0 kU/L X643-JlE Greer, Mountain <0.10 Class 0 kU/L O860-PuO Pineville, White <0.10 Class 0 kU/L D099-LsB Elm, Finnish <0.10 Class 0 kU/L T351-YqM Maple Haskell Arapahoe <0.10 Class 0 kU/L W472-ZmY Lycoming <0.10 Class 0 kU/L C147-XoN Geronimo, White <0.10 Class 0 kU/L T100-WvL Valley [place] <0.10 Class 0 kU/L O163-VzQ Pecan, Galax <0.10 Class 0 kU/L S729-JmC White Chardon <0.10 Class 0 kU/L W444-ZyZ Ragweed, Short 0.49 Class I kU/L J013-YwI Thistle, Armenian <0.10 Class 0 kU/L S992-CvN Pigweed, Common 0.20 Class 0/I kU/L C938-TsP Rough Marshelder <0.10 Class 0 kU/L U454-XtT Mouse Urine <0.10 Class 0 kU/L Spirometry Reviewed date:04/21/2024 05:00:54 PM Interpretation:Normal Performing [...] let Reviewed date:05/13/2024 09:40:56 PM Interpretation:Normal Performing Lab:[facility], [address] [place] [address] [id number], Phone - [phone], Director - Mikey Notes/Report: WBC 5.7 3.4-10.8 [...] % Immature Grans (Abs) 0.0 0.0-0.1 x10E3/uL Reason For Referral No Information Medications Medication SIG (Take, Route, Frequency, Duration) Notes Start Date End Date Status Cholecalciferol *Please review and pick correct strength-formulat ion from Joognu options. If intended option is not shown, [...] Status W/U Status Risk Notes Problem Wheezing (39841683) Wheezing (R06.2) Active confirmed Problem Chronic allergic conjunctivitis (63389595) Other chronic allergic conjunctivitis (H10.45) Active confirmed Problem Allergic rhinitis caused by pollen (disorder) (39859239) Allergic rhinitis due to pollen (J30.1) Active confirmed Problem Allergic rhinitis (60863968) Other allergic rhinitis (J30.89) Active confirmed Problem Chronic rhinitis (51911066) Chronic rhinitis (J31.0) Active confirmed Problem Hypertrophy of nasal turbinates (73497963) Hypertrophy of nasal turbinates (J34.3) Active confirmed Problem Uncomplicated mild persistent asthma (535226436) Mild persistent asthma, uncomplicated (J45.30) Active confirmed Problem Uncomplicated moderate persistent asthma (805948760) Moderate persistent asthma, uncomplicated (J45.40) Active confirmed Problem Uncomplicated severe persistent asthma (786249183) Severe persistent asthma, uncomplicated (J45.50) Active confirmed Problem Allergic rhinitis caused by animal hair and dander (744403593807150) Allergic rhinitis due to animal (cat) (dog) hair and dander (J30.81) Active confirmed Problem Shortness of breath (184676869) Shortness of breath (R06.02) Active confirmed Vital Signs Blood pressure diastolic 82 mm Hg 11/14/2024 Oximetry 98 % 11/14/2024 Height 64 in 11/14/2024 Blood pressure systolic 127 mm Hg 11/14/2024 Weight 186.8 lbs 11/14/2024 BMI 32.06 kg/m2 11/14/2024 Encounters Encounter Location Date Provider Diagnosis [address] [address] 04/27/2024 Provider [facility] Shortness of breath R06.[address] [facility] [address] [address] 04/18/2024 Sarita Young Wheezing R06.2 ; Shortness of breath R06.02 ; Hypertrophy of nasal turbinates J34.3 ; Chronic rhinitis J31.0 and Adverse effect of penicillins, initial encounter T36.0X5A [address] [facility] [address] [address] 07/18/2024 Sarita Young Wheezing R06.2 ; Shortness of breath R06.02 ; Allergic rhinitis due to pollen J30.1 ; Allergic rhinitis due to animal (cat) (dog) hair and dander J30.81 ; Other allergic rhinitis J30.89 and Adverse effect of penicillins, subsequent encounter T36.0X5D [place] [address] [address] 11/14/2024 Sarita Young Wheezing R06.2 ; Shortness of breath R06.02 ; Allergic rhinitis due to pollen J30.1 ; Allergic rhinitis due to animal (cat) (dog) hair and dander J30.81 ; Other allergic rhinitis J30.89 ; Adverse effect of penicillins, subsequent encounter T36.0X5D and Encounter for immunization Z23 [address] [address] 09/18/2024 Sarita Young Shortness of breath R06.[address] [address] 10/01/2024 Sarita Young [address] [address] 12/10/2024 Sarita Young [address] [address] 12/10/2024 Sarita Young [address] [address] 12/16/2024 Sarita Young Shortness of breath R06.[address] [address] 12/25/2024 Sarita Young [address] [address] 01/20/2025 Sarita Young Shortness of breath R06.[address] [address] 09/09/2024 Sarita Young Shortness of breath R06.[address] [address] 09/10/2024 Sarita Young Assessments Encounter Date Diagnosis (ICD Code) Assessment Notes Treatment Notes Treatment Clinical Notes Section Notes 04/18/2024 Wheezing (ICD-10 - R06.2) See plan above 07/18/2024 Shortness of breath (ICD-10 - R06.02) Talno has experienced lower airway symptoms with exposure to animals and possibly mold concerning for asthma, which responds well to albuterol. -Spirometry last visit with normal function but FVL shows scalloping concerning for airway obstruction. Started on Breo then changed to Advair due to insurance. Spirometry last visit again normal but FEV1 improved by 140 cc -Has noticed improvement when carpet repairer. Doing better on Advair - will refill [...] by 140 cc -Has noticed improvement when carpet repairer. - AAP was formulated and training with [...] by 140 cc -Has noticed improvement when carpet repairer. Doing better on Dulera- will refill PATRIA. [...] Name:Sarita Isidro , 06/26/2025 03:00:00 PM, [address] [facility] [address], [place], [address], Insurance Providers Payer Name Payer Address Payer Phone Subscriber Number Group Number Insured Name Patient Relationship to Insured Coverage Start Date Coverage End Date Vicki [address] [place], [place] [id number] [phone] [id number] Talon Puentes Self - patient is the insured 8 Medical (General) History Medical History History ICD Code breast cancer Surgical History Surgery Date(Month/Year) appendectomy mastectomy
--- OUTSIDE RECORDS SUMMARY | 2025-04-11 00:55 | XMS_ITS | Encounter Summary ---
Author Organization [facility] Address [address] [place] [address] Care Team Providers Care Manager Bench Name Role Phone Vickie Melton MD Primary Care Provider + Reason for Visit * Reason Comments Question Patient Communication Information Encounter Details Date Type Department Care Team (Late st Contact Info) Description 08/19/2024 Telephone [facility] Internal Medicine - [place] [id number] [place] [address] Vickie Melton MD [address] [place] [address] Question; Patient Communication; Information Social History Tobacco Use Types Packs/Day Years Used Date Smoking Tobacco: Never Smokeless Tobacco: Never Alcohol Use Standard Drinks/Week Comments No 0 (1 standard drink = 0.6 oz pur e alcohol) Comments No Sex and Gender Information Value Date Recorded Sex Assigned at Not on file Legal Sex Female 5:54 AM CHARGE RN Gender Identity Not on file Sexual Orientation [...] the recommended timeframe. Patient informed of additional [employer] and expresses intent to utilize walk-in and [facility]. Phone Management by Nurse: For cough: [...] - 08/19/2024 10:04 AM CDT Copied from [facility] #[id number]. Topic: Patient or Caregiver Communication Request >> Aug 19, 2024 10:03 AM Mary Turner wrote: Patient or Caregiver requesting advice Caller: Talon Puentes Patient/Caregiver Callback Number: [phone] (home) Call Notes: Talon Puentes asking if Dr Melton has seen her MMM and asking to be updated on Strep test * Telephone Encounter - Stephanie Pedro - 08/19/2024 8:48 AM CDT Copied from [facility] #[id number]. Topic: Patient or Caregiver Communication Request >> Aug 19, 2024 8:45 AM Stephanie Henson wrote: Patient or Caregiver insisting that a message be sent to Care Team Caller: Talon Patient/Caregiver Callback Number: [phone] Call Notes: pt tried to use [employer] and she has been unable to access the Conjur and is needing a call back about getting a in regarding a strep test * Telephone Encounter - Reymauricio Ramirezzachary - 08/19/2024 8:21 AM CDT Copied from [facility] #[id number]. Topic: Patient or Caregiver Communication Request >> Aug 19, 2024 8:20 AM Erica Henson wrote: Patient or Caregiver insisting that a message be sent to Care Team Caller: Talon Puentes Patient/Caregiver Callback Number: [phone] (home) Call Notes: do we do rapid strep test in the office? documented in this encounter Plan of Treatment Upcoming Encounters Date Type Department Care Team (Late st Contact Info) Description 09/03/2025 11:20 AM CDT Office Visit [facility] Internal Medicine - [address] [address] Vickie Melton MD [address] [place] [address] documented as of this encounter Visit Diagnoses Not on filedocumented in this encounter Care Teams Manager Bench Relationship Specialty Start Date End Date Vickie Melton MD [address] [place] [address] PCP - General Internal Medicine 12/18/20 documented as of this encounter
--- OUTSIDE RECORDS SUMMARY | 2025-04-11 00:55 | XMS_ITS ---
Author Organization [employer] ([address]) Address [address] [facility] [address] [place] [address] Care Team Providers Care Storekeeper Steward Name Role Phone Vickie Melton Primary Care Provider UnavailSarita Weiner Unavailable [phone] [facility], Provider Unavailable Unavailab le Allergies Allergen (clinical drug ingredient) Drug/Non Drug Allergy documented on EMR Reaction Allergy Type Onset Date Status penicillamine penicillAMINE Unknown Drug Allergy Active REASON FOR VISIT [facility] Encounter Medications Medication SIG (Take, Route, Frequency, Duration) Notes Start Date End Date Status Cholecalciferol *Please review a nd pick correct strength-formulati on from [facility] options. If intended option is not shown, discontinue and re-order from Quick Search* Active traZODone HCl 50 MG as directed orally Active Advair Diskus 250 MCG-50 MCG 1 INH INHALED 2 TIMES A DAY *Please review and pick correct strength-formulati on from [facility] options. If intended option is not shown, discontinue and re-order from Quick Search* 03/12/2024 Active Albuterol Sulfate HFA 108 (90 Base) MCG/ACT 2 puff(s) inhaled every 6 hours Active AEROCHAMBER MDI SPACER - MOUTHPIECE (ADULT) N/A DIRECTED PO PER ASTHMA ACTION PLAN for 30 DAY(S) *Please review for potential replacement for e-prescription and drug interaction check* Active Encounters Encounter Location Date Provider Diagnosis [address] [address] 04/27/2024 Provider Maria Del Carmen Shortness of [...] SommerJhon Isidro , 06/26/2025 03:00:00 PM, [address] [facility], [address], [place], [address], Progress Notes * Mike PUENTESeDOB:1965 (59 yo F)Acc No.[id number]:04/27/2024 Patient: Bennie Talon SNELL Provider: Shanta De :1965 A ge:58 Y S ex:Female Date:04/27/2024 [facility] Pcp:Vickie Melton Subjective: * Chief Complaints: [...] * Electronic signature of Paris MOCK-Migration on 04/11/2025 at 12:55 AM CDT Sign off status: Pending * Provider: Shanta kern Migration Date: 04/27/2024 Generated for José Miguel gilbert/Tracy/Nolan on: 0 04/11/2025 12:55 AM CDT
--- OUTSIDE RECORDS SUMMARY | 2025-04-11 00:55 | XMS_ITS | Patient Health Record ---
Author Organization [employer] Address 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 221049833 PLAN OF TREATMENT No Information Insurance Providers Payer Name Payer Address Payer Phone Subscriber Number Group Number Insured Name Patient Relationship to Insured Coverage Start Date Coverage End Date [facility] [address] [address] [place] [address] [id number] Talon FERREIRA Self - patient is the insured 1 [employer] [address] [address] [id number] Talon FERREIRA Self - patient is the insured 9 MEDICAL (GENERAL) HISTORY Medical History History ICD Code Breast cancer s.p chemo/XRT and Tamoxife n x 5 years loss of hearing Ringing in ears anxiety indigestion hemorrhoids weight gain Lumps in Breasts Hot Flashes painful intercourse Surgical History Surgery Date(Month/Year) lumpectomy mastectomy breast surgery
--- OUTSIDE RECORDS SUMMARY | 2025-04-11 00:55 | XMS_ITS | Clinical Summary ---
Author Organization [facility] Address [address] [place] [address] Phone Care Team Providers Care Plaster Pattern Caster Name Role Phone Vickie Melton MD Primary [...] (Nasacort) 55 mcg nasal spray Administer 1 [place] in each nostril daily. 4 Active Advair [...] MOUTH DAILY AT BEDTIME 90 Tablet 1 5 Active Active Problems Patient Care Coordination No te Formatting of this note migh t be different from the original. Primary Care: Lio Phoenix MD Referring Provider: Lio Phoenix MD [address] [place] [address] Other: Dr Joyce Ríos MD Problem Noted [...] 3. Extensive tumor necrosis ER weakly +1%, [place] weakly +2%, HER-2/luz negative, proliferative rate 78% Encounters Date Type Department Care Team Description 04/08/2025 External Device Data [facility] ABSTRACTION Provider, Abstract 04/03/2025 External Device Data [facility] ABSTRACTION Provider, Abstract 04/02/2025 External Device Data [facility] ABSTRACTION Provider, Abstract 03/18/2025 Abstract [facility] Internal Medicine [address] [address] Vickie Melton MD 03/11/2025 Refill [facility] Internal [address] [address] Suzette Young, ACCOUNTS EXECUTIVE Insomnia, unspecified type 03/10/2025 Orders Only [address] [address] Provider, Abstract 02/11/2025 External Device [...] on file Legal Sex Female 5:54 AM BEHAVIORAL HEALTH ASSOCIATE Gender Identity Not on file Sexual Orientation [...] Description 09/03/2025 11:20 AM CDT Office Visit [facility] Internal Medicine - [facility] [address] [place] [address] Vickie Melton MD [address] [place] [address] Health Maintenance Due Date Last [...] 08/07/2024, 12/02/2019 Medical Devices Implanted Type Area Fabrication Manager Device Identifier Shelf Expiration Date Model / Serial / Lot Alloderm Rtu Cntr 1.6sq Mm [id number] - [id number] Implanted:Qt y: 1 on 10/31/2017 by Juancarlos Harrison MD at [facility] Right: Breast LIFECELL MICHAEL [id number] 09/12/2019 [id number] / / [id number] Description:REQ#[id number] Alloderm Rtu Cntr 1.6sqmm [id number] - [id number] Implanted:Qt y: 1 on 10/31/2017 by Juancarlos Harrison MD at [facility] Bilateral : Breast LIFECELL MICHAEL [id number] 04/12/2019 [id number] / / [id number] Description:SPLIT IN 2, SMAL L PIECE USED ON LEFT SIDE REQ#[id number] Alloderm Rtu Cntr 1.6sq Mm [id number] - [id number] Implanted:Qt y: 1 on 10/31/2017 by Juancarlos Harrison MD at [facility] Left: Breast LIFECELL MICHAEL [id number] 08/12/2019 [id number] / / [id number] Description:REQ#[id number] Scx 200cc Natrelle Inspira Implanted:Qt y: 1 on 10/31/2017 by Juancarlos Harrison MD at [facility] Right: Breast [id number] 08/22/2022 SCX-200 / [id number] / ALLERGAN Mammary Inspira Cohesive 285ml Scx-285 - [id number] Implanted:Qt y: 1 on 04/04/2018 by Juancarlos Harrison MD at [facility] Left: Breast ALLERGAN- MEDICAL 03/26/2022 SCX-285 / [id number] / [id number] - Vascular Access Ports - 1 - Port Pwrprt Mri 8fr [id number] Implanted:Qt y: 1 on 06/24/2010 at [facility] Port Left: Chest Wall CR BARD- ACCESS SYS 04/13/2012 [id number] / [id number] / [id number] Explanted Type Area Fabrication Manager Device Identifier Shelf Expiration Date Model / Serial / Lot Zaida Knox Cohesive 225cc Implanted:Qty: 1 on 10/31/2017 by Juancarlos Harrison MD at [facility] Explanted:Qty: 1 on 04/04/2018 by Juancarlos Harrison MD at [facility] Mammary Left: Breast ALLERGAN- MEDICAL [id number] 06/20/2022 SCX-225 / [id number] / Description:Both Allergan br east implants are processed on requisition [id number]. Procedures Procedure Name Priority Date/Time Associated Diagnosis [...] children. ESTIMATED AVERAGE GLUCOSE (MG/DL) 126 mg/dL [employer] ESTIMATED AVERAGE GLUCOSE (MMOL/L) 7.0 mmol/L [employer] [facility] Comment: This test was performed on the Agustin david c503 platform. Effective 01/29/24, a change in test platforms from the Escalera Shoulder Joiner to the Agustin david c503 may have shifted HbA1c results compared to historical results. Based on laboratory validation testing conducted at [facility], the Agustin platform relative to the Escalera [...] platforms is not recommended. Test Performed at: [facility] [address] [place] [address] Evangelina Burks MD Blood 08/07/2024 11:4 8 AM CDT 08/08/2024 5:47 AM CDT Micaela Higuera MD CHEMISTRY ORDERABLES Final Res ult [facility] [phone] [facility] [address] [place] [address] * COLONOSCOPY REPORT (06/08/2021 1:42 PM CDT) Narrative Procedure Note Jonathan Gupta MD - 06/08/2021 7:57 AM CDT [facility] Endoscopy Patient Name: Talon Puentes Procedure [...] Addenda: 0 Procedure Date: 06/08/2021 7:24:[address] AM [address] [address] Jonathan Gupta MD GI PROCEDURE ORDERABLES Gabriela lanza Result * CERV/VAG CYTOPATH, THIN PREP AND HPV (11/10/2014) Endocervical us Abstract Provider PATHOLOGY/CYTOLOGY ORDERABLES Final Result [facility] CLIA# [id number] [address] [place] [address] from Last 3 Months or Most Recently Relevant to Health Maintenance [place] [address] OPEN ACCESS HMO Advance Directives For more information, please contact: [phone] * Full Code (Latest Code Status on [...] 8:58 AM 06/24/2010 4:26 PM Care Teams Plaster Pattern Caster Relationship Specialty Start Date End Date Vickie Melton MD [address] [place] [address] PCP - General Internal Medicine 12/18/20
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
[2025-04-11] MEDS: LACTATED RINGERS 1,000 ML 30 ML IV CONT ×2 (10:40→13:18)
[2025-04-11] MEDS: ACETAMINOPHEN 500 MG TABLET 1000 MG PO (10:45)
[2025-04-11] MEDS: KETOROLAC 15 MG/ML VIAL (*BKC) IV PUSH (10:45)
--- NOTE | 2025-04-11 11:51 | WPDHPUPDATE1 ---
History and Physical Update Update Date/Time: 04/11/25 11:51 History and Physical has been reviewed, including an updated exam of the patient. There are NO changes in the patient's condition. Risks, benefits, and alternatives have been discussed and questions answered. Patient agrees to proceed with procedure.
[2025-04-11] MEDS: ceFAZolin 2 GM/D5W 50 ML 2 GM/50 ML BAG IVPB (11:56)
[2025-04-11] MEDS: BUPIVACAINE/EPINEPHRINE 0.5% 50 ML VIAL 30 ML INFILTRATE (12:17)
--- NOTE | 2025-04-11 12:31 | S_PTH ---
PATIENT: Talon Puentes LOC: [facility] U#:[id number] AGE/SX: 59/F ROOM: RE04/11/[address]: Viridiana Romero MD : 1965 BED: DIS: 04/11/2025 SPEC #: [id number] RECD: 04/11/25 13:01 STATUS: FREDA REShlomo #: [id number] RANDY: 04/11/25 12:[address]: Viridiana Romero DEPT: [facility] Surgical RECD BY: Kelsie Narayan ENTERED: 04/11/25 13:01 SP TYPE: Surgical OTHR DR: Vickie MeltonMD Tissues: A - Gallbladder Procedures: Hematoxylin and Eosin Stain Gross and Microscopic Level 3
--- NOTE | 2025-04-11 12:54 | W.PM.PROC2 ---
Procedure Note - Detailed Date of Procedure 04/11/25 Pre-op Diagnosis chronic calculus cholecystitis Post-op Diagnosis Same Procedure Performed Laparoscopic cholecystectomy Surgeon Viridiana Romero MD Anesthesia General Indications 59-year-old female presenting to the office complaining postprandial right upper quadrant, epigastric abdominal pain. Workup, including imaging, significant for chronic cholecystitis, cholelithiasis Findings moderate cholecystitis with adhesions Description of Procedure The patient was taken to the operating room placed in the supine position. After adequate induction of general anesthesia, the patient was prepped and draped in normal sterile fashion. A time-out was then performed to verify the patient's identity as well as the procedure being performed. I then made a 5 mm incision in the infraumbilical region. Through this, a Veress needle was placed into the peritoneal cavity and CO2 gas was then insufflated. After adequate pneumoperitoneum was achieved, the Veress needle was removed and a 5 mm optiview trocar was placed through this incision under direct visualization. I then placed the laparoscope through this trocar site and under direct visualization placed a further 12 mm subxiphoid port as well as 2 additional 5 mm ports in the right upper abdomen. The gallbladder was then identified and was noted to be moderately inflamed and distended. So, there was significant omental adhesions to the gallbladder and these were taken down with the cautery. Once completely free of adhesions, I was able to place a grasper at the dome of the gallbladder and this was retracted anterior and cephalad up over the liver. A 2nd retractor was then placed at the infundibulum and retracted laterally, this allowed visualization of the triangle of Calot. I then was able to visualize the cystic duct in its entirety from its proximal insertion into the gallbladder, to its distal junction with the common hepatic/common bile duct junction. At this point, I carefully skeletonized the proximal cystic duct with the [place] dissector. I then clipped and transected the proximal cystic duct. Next I visualized the cystic artery. Again the artery was skeletonized, clipped, and transected. I then used the Bovie cautery to take down the peritoneal attachments of the gallbladder off the liver bed. This was somewhat difficult given the amount of inflammation in the posterior space. Once the gallbladder specimen was completely detached, an endo-pouch was placed through the 12 mm port site. I then placed the gallbladder specimen into the Endo pouch and removed the endo-pouch from the 12 mm port site. The specimen will now be sent to pathology for further review. I then copiously irrigated the right upper quadrant. Some mild oozing was noted in the liver bed and this was controlled with the bovie cautery. I then placed some hemostatic powder in the liver bed. Hemostasis was noted in the liver bed, the clips were noted to be in good position on both the cystic duct stump and the cystic artery stump. No other pathology was noted in the right upper quadrant. I then moved the laparoscope to the subxiphoid port. No iatrogenic injury or other pathology was noted in the lower abdomen. I then closed the 12 mm trocar site under direct visualization using the Nathaniel cone and 0 Vicryl suture. At this point, the abdomen was desufflated and all ports removed. All port sites were then closed with 4.O Monocryl subcuticular sutures. Dermabond was placed on each incision. The patient tolerated the procedure well, was extubated in the operating room postoperative and will be transferred to the recovery room in stable condition Estimated Blood Loss 10 Drains No Packing No Pathology Yes Complications No immediate complications Condition Stable Disposition PACU [facility] Billing Surgery - Charge Forward: Surgery Billing
[2025-04-11] MEDS: ONDANSETRON INJ 4 MG/2 ML VIAL IV PUSH (13:13)
[2025-04-11] MEDS: fentaNYL CITRATE INJ (*CRX) 100 MCG/2 ML VIAL 25 MCG IV PUSH ×8 (13:23→14:26)
[2025-04-11] MEDS: diphenhydrAMINE HCl INJ 50 MG/ML VIAL 12.5 MG IV PUSH ×2 (13:38→13:47)
[2025-04-11] MEDS: oxyCODONE HCL (*CRX) 5 MG TAB IR PO (15:00)
== END 2025-04-11 15:38 | disposition home or self-care (01) ==
PROVIDERS: PCP Internal Medicine; Visit Provider Surgery
PROC: 0FT44ZZ Resection of Gallbladder, Percutaneous Endoscopic Approach (ICD-10-PCS; CPT 47562; principal; 2025-04-11 12:00)
DX: K80.10 Calculus of gallbladder with chronic cholecystitis without obstruction (principal)
CPT/HCPCS: 47562; 88304; A9270; J0690; J1100; J1200; J1885; J2003; J2250; J2405; J2704; J3010; J7030; J7120

== ENCOUNTER 2025-11-01 08:19 | Emergency (ER) | payer OTHER, SELFPAY ==
[2025-11-01 08:29] VITALS: BP 123/65; PULSE 103; RESP 18; TEMP 36.5; O2SAT 99
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
[2025-11-01 08:51] LABS: EDSTREPNEGPOS1 Negative (Negative)
== END 2025-11-01 09:00 | disposition home or self-care (01) ==
PROVIDERS: Emergency Provider Nurse Practitioner Family
DX: J32.9 Chronic sinusitis, unspecified (principal); E78.5 Hyperlipidemia, unspecified; J45.909 Unspecified asthma, uncomplicated; Z85.3 Personal history of malignant neoplasm of breast
CPT/HCPCS: 87081; 87880; 99213; G0463